=== PATIENT | female | born 1960 | race Caucasian/White ===

== ENCOUNTER 2021-06-11 12:37 | Outpatient (CLI) | payer BC, SELFPAY ==
--- NOTE | ~2021-06-11 | DEXA_ITS ---
Bone Density Report Name: Melisa Monge Age: 60 Sex: Female Ethnicity: White Date of : 1960 Indication: osteopenia; postmenopausal Referring Provider: Kunal Ruiz Study: Bone densitometry was performed. Exam Date: June 11, 2021 Accession number: [id number] Bone Density: Region BMD T-score Z-score Classification AP Spine(L1-L4) 0.977 -0.6 1.0 Normal Femoral Neck (Left) 0.704 -1.3 0.1 Osteopenia Total Hip (Left) 0.744 -1.6 -0.5 Osteopenia Femoral Neck (Right) 0.666 -1.6 -0.2 Osteopenia Total Hip (Right) 0.716 -1.9 -0.8 Osteopenia Femoral Neck Mean 0.685 -1.5 -0.1 Osteopenia Total Hip Mean 0.730 -1.7 -0.6 Osteopenia World Health Organization criteria for BMD impression classify patients as: Normal (T-score at or above -1.0), Osteopenia (T-score between -1.0 and -2.5), or Osteoporosis (T-score at or below -2.5). 10-year Fracture Risk(1): Major Osteoporotic Fracture 8.6% Hip Fracture 0.9% Reported Risk Factors: [place] (), Neck BMD=0.666, BMI=31.1 (1) FRAX(R) Version 3.08. Fracture probability calculated for an untreated patient. Fracture probability may be lower if the patient has received treatment. Previous Exams: Region Exam Age BMD T-score BMD Change BMD Change Date g/cm2 vs Baseline vs Previous AP Spine (L1-L4) 06/11/2021 60 0.977 -0.6 -0.001 (-0.1%) -0.008 (-0.8%) 01/21/2016 55 0.985 -0.6 0.008 (0.8%) 0.008 (0.8%) 11/22/2014 54 0.977 -0.6 Total Hip(Left) 06/11/2021 60 0.744 -1.6 -0.041 (-5.3%) 0.034 (4.8%)# 01/21/2016 55 0.710 -1.9 -0.076 (-9.6%) -0.076 (-9.6%) 11/22/2014 54 0.785 -1.3 Total Hip(Right) 06/11/2021 60 0.716 -1.9 -0.083 (-10.4% -0.083 (-10.4% 11/22/2014 54 0.799 -1.2 *Denotes significance at 95% confidence level, LSC for AP Spine = 0.022 g/cm2, LSC for Total Hip = 0.027 g/cm2 # Denotes dissimilar scan types or analysis methods Clinical Information Provided by Patient: Has used the following medications: Vitamin D Menopause Age: 43 No regular weight bearing exercise Drinks caffeinated beverages Onset of menses at age 11 Number of children 2 Impression: The patient has low bone mass, based on the Right Total Hip T-score. No significant bone loss was observed. Discussion: BONE DENSITY IS LOW AT ONE OR MORE SKELETAL SITES. This patient's lowest T-score is low at one or more skeletal sites. It meets the [facility]
--- NOTE | ~2021-06-11 | MM_ITS ---
EXAMINATION: MM screening [facility] BI w shwetha HISTORY: Screening TECHNIQUE: Craniocaudal and mediolateral oblique 3-D tomosynthesis images were obtained and synthetic 2-D images were generated. CAD analysis was submitted and interpreted. COMPARISON: Comparison to multiple prior studies sequentially, with oldest reviewed study dated 05/2012. BREAST PARENCHYMAL COMPOSITION: There are scattered areas of fibroglandular density. FINDINGS: There is no evidence of suspicious mass, calcification, or architectural distortion to sugg est malignancy in either breast. There has been no suspicious interval change. IMPRESSION: 1. No mammographic evidence of malignancy. 2. Recommend routine screening mammography in one year. BI-RADS Category 1: Negative Reviewed, dictated and finalized at location A.
== END 2021-06-11 12:38 | disposition home or self-care (01) ==
PROVIDERS: PCP Internal Medicine; Visit Provider Internal Medicine
DX: M85.80 Other specified disorders of bone density and structure, unspecified site (principal); Z00.00 Encounter for general adult medical examination without abnormal findings; Z78.0 Asymptomatic menopausal state; Z12.31 Encounter for screening mammogram for malignant neoplasm of breast
CPT/HCPCS: 77063; 77067; 77080

== ENCOUNTER 2021-08-11 10:18 | Outpatient (CLI) | payer BC, SELFPAY ==
[2021-08-11 13:28] LABS: Influenza A QL RT-PCR Negative (Negative); Influenza B QL RT-PCR Negative (Negative); SARS-CoV-2 RNA PCR Negative (Negative)
== END 2021-08-11 10:19 | disposition home or self-care (01) ==
LOC: CHSLAB 10:21
PROVIDERS: PCP Internal Medicine; Visit Provider Internal Medicine
DX: J02.9 Acute pharyngitis, unspecified (principal); Z20.822 Contact with and (suspected) exposure to COVID-19
CPT/HCPCS: 87502; C9803; U0003; U0005

== ENCOUNTER 2022-07-20 07:18 | Outpatient (CLI) | payer BC, SELFPAY ==
--- NOTE | ~2022-07-20 | MM_ITS ---
EXAMINATION: MM screening [facility] w shwetha HISTORY: Screening mammogram TECHNIQUE: Craniocaudal and mediolateral oblique 3-D tomosynthesis images were obtained and synthetic 2-D images were generated. CAD analysis was submitted and interpreted. COMPARISON: 05/11/2021, 09/2018, 05/09/2017 bilateral screening mammogram examinations BREAST PARENCHYMAL COMPOSITION: The breasts are almost entirely fatty. FINDINGS: There is no evidence of suspicious mass, calcification, or architectural distortion to sugg est malignancy in either breast. There has been no suspicious interval change. IMPRESSION: 1. No mammographic evidence of malignancy. 2. Recommend routine screening mammography in one year. BI-RADS Category 1: Negative Reviewed, dictated and finalized at location A. PILER
== END 2022-07-20 07:19 | disposition home or self-care (01) ==
LOC: CHSIMG 07:20
PROVIDERS: PCP Internal Medicine; Visit Provider Internal Medicine
DX: Z12.31 Encounter for screening mammogram for malignant neoplasm of breast (principal)
CPT/HCPCS: 77063; 77067

== ENCOUNTER 2022-07-23 10:40 | Outpatient (CLI) | payer BC, SELFPAY ==
--- NOTE | ~2022-07-23 | US_ITS ---
EXAMINATION: US venous doppler [facility] DATE: 07/23/2022 11:11 INDICATION: Left popliteal pain and swelling TECHNIQUE: Ryder scale images without and with compression and Doppler images of the left lower extrem ity veins were obtained. COMPARISON: None FINDINGS: The left common femoral vein, profunda femoral vein, femoral vein, popliteal vein, peroneal trunk, posterior tibial veins, and greater saphenous vein are patent. There is a 6.1 cm Thorne's cyst in the left popliteal fossa. IMPRESSION: 1. Patent left lower extremity veins. No evidence of deep venous thrombosis. 2. 6.1 cm Thorne's cyst. Reviewed, dictated and finalized at location B. CONDITIONING MANAGER
== END 2022-07-23 10:41 | disposition home or self-care (01) ==
LOC: CHSIMG 10:42
PROVIDERS: PCP Internal Medicine; Visit Provider Internal Medicine
DX: M79.605 Pain in left leg (principal)
CPT/HCPCS: 93971

== ENCOUNTER 2022-08-10 09:06 | Outpatient (CLI) | payer BC, SELFPAY ==
--- NOTE | ~2022-08-10 | XR_ITS ---
XR knee LT min 4V DATE: 08/10/2022 09:31 INDICATION: Medial left knee pain. History of arthritis. TECHNIQUE: [place], lateral, [place] weightbearing AP views COMPARISON: None FINDINGS: There is prominent loss of medial joint space height with minimal periarticular spurring. No fracture or dislocation or joint effusion, periosteal reaction or bone destruction, radiopaque int ra-articular loose body or chondrocalcinosis is noted. Osteopenia. IMPRESSION: Prominent medial compartment osteoarthritis Osteopenia Reviewed, dictated and finalized at location B. 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
== END 2022-08-10 09:07 | disposition home or self-care (01) ==
LOC: CHSIMG 09:08
PROVIDERS: PCP Internal Medicine; Visit Provider Internal Medicine
DX: M25.562 Pain in left knee (principal)
CPT/HCPCS: 73564

== ENCOUNTER 2022-08-19 08:50 | Outpatient (RCR) | payer BC, SELFPAY ==
--- NOTE | 2022-08-19 09:40 | PTOPEVAL1 ---
Assessment and note entered by Anabel Segovia, PT Evaluation Information Assessment Status Evaluation Diagnosis Knee Pain, OA Onset 08/10/22 Subjective Information Melisa Monge reports she started having left knee pain while on vacation in June 2022. She reports she has a history of a Thorne's Cyst and had a long drive. She also did a lot of walking while on vacation. She stands and walks a lot for work as well. She went to her doctor and was prescribed medication that did not help so she was referred to PT. She underwent x-ray that showed OA in the left knee. She has increased pain with getting up after prolonged sitting. She has 4 stairs into her home that she can navigate fairly well. Reported Pain Level Pain Score 6: Self Report Assessment PT Clinical Summary Melisa Monge presents with left knee pain and has been diagnosed with osteoarthritis. She has difficulty with sit to stand transfers after prolonged sitting as well as prolonged walking. She objectively demonstrates decreased and painful left knee ROM, decreased knee and hip strength, impaired gait, and decreased functional abilities. She will benefit from skilled PT to address these limitations. Plan of Care Interventions Electrical Stimulation,Hot Pack/Cold Pack, Intermittent Compression,Manual Therapy,Neuro Re- education,Patient/Caregiver Educati,Therapeutic Activities,Therapeutic Exercise PT Services Indicated Yes Treatment Frequency and 3 times a week for 12 visits Duration These treatments will address the objective and functional deficits as defined above. The patient will be advanced safely and appropriately in order for the patient to progress towards his/her prior level of function. Additional exercises will be introduced and as well as a comprehensive home exercise program upon discharge, if needed, ?to ensure carryover of functional gains achieved in the clinic. This treatment plan has been reviewed and agreement upon by the patient.
--- NOTE | 2022-09-07 10:04 | PTOPDC ---
Assessment and note entered by JT File, PT Evaluation Information Assessment Status Discharge Diagnosis Knee Pain, OA Onset 08/10/22 Subjective Information patient reports she feels good this date. she reports she has been cleared to stop therapy from her MD. she reports she would like to DC therapy today and continue with HEP independent at home. Reported Pain Level Pain Score 0: Self Report Assessment PT Clinical Summary mrs. denise presents to skilled PT services for her 5th skilled tehrapy visit. as of this date, she presents with pain free ambulation, pain free rom, and return to all prior level activities. she has met all goals, except for her goal for ROM. she would do well to continue with HEP independent at home. Plan of Care Treatment Frequency and DC to independent HEP Duration
== END 2022-09-07 16:07 | disposition home or self-care (01) ==
LOC: CHSPT 08:50
PROVIDERS: PCP Internal Medicine; Visit Provider Internal Medicine
DX: M25.562 Pain in left knee (principal); M17.12 Unilateral primary osteoarthritis, left knee
CPT/HCPCS: 97014; 97110; 97161; 97530; G0283

== ENCOUNTER 2022-12-23 12:42 | Outpatient (CLI) | payer BC, SELFPAY ==
--- NOTE | ~2022-12-23 | US_ITS ---
EXAMINATION: US pelvic complete w TV DATE: 12/23/2022 13:33 INDICATION: Postmenopausal bleeding Comparison:No prior studies for comparison. TECHNIQUE: Multiple transabdominal and endovaginal sonographic images of the pelvis performed. FINDINGS: The uterus measures 5.8 x 3.4 x 4.2 cm. The endometrial complex is not well delineated due to large heterogeneous mass in the endometrium measuring 3.4 x 3.4 x 2.8 cm. The ovaries are not visualized. There is no free fluid in the pelvis. There are no abnormal masses seen on either side. IMPRESSION: 1. Complex endometrial mass measuring 3.4 x 2.8 x 3.4 cm, suspicious for endometrial carcinoma. Recom mend follow-up clinical evaluation. Reviewed, dictated and finalized at location L. IMPRESSION: 1. Complex endometrial mass measuring 3.4 x 2.8 x 3.4 cm, suspicious for endome trial carcinoma. Recommend follow-up clinical evaluation.
== END 2022-12-23 12:43 | disposition home or self-care (01) ==
PROVIDERS: PCP Internal Medicine; Visit Provider Registered Nurse
DX: N95.0 Postmenopausal bleeding (principal); N85.00 Endometrial hyperplasia, unspecified
CPT/HCPCS: 76830; 76856

== ENCOUNTER 2023-05-18 01:27 | Emergency (ER) | payer BC, SELFPAY ==
[2023-05-18] MEDS: methylPREDNISolone SOD SUCC 125 MG VIAL IM (01:30)
[2023-05-18 01:32] VITALS: BP 166/80; PULSE 77; RESP 20; TEMP 37; O2SAT 97
--- NOTE | 2023-05-18 01:46 | ED.SKABFB ---
HPI - Skin/Abscess/Foreign Bdy General Chief complaint: Skin/Abscess/Foreign Body Stated complaint: hives Source: patient and family Mode of arrival: ambulatory Limitations: no limitations History of Present Illness HPI narrative: patient is a 62-year-old female with known cancer and chemotherapy here with generalized rash. The rash is diffuse and started after she started a new vitamin suggested by the oncologist. MD complaint: rash Onset (ago): day(s) Location: generalized Severity: moderate Severity scale (1-10): 5 ( Pruritus) Quality: pruritic Pain Consistency: constant Relieving factors: none Exacerbating factors: none Context: new medication Associated symptoms: itching Treatments prior to arrival: Benadryl Related Data Home Medications Medication Instructions Recorded Confirmed aspirin 81 mg tablet,delayed 81 mg PO DAILY 04/08/21 05/18/23 release calcium carbonate 600 mg calcium 600 mg PO DAILY 04/08/21 05/18/23 (1,500 mg) tablet (Calcium) cholecalciferol (vitamin D3) 25 25 mcg PO DAILY 04/08/21 05/18/23 mcg (1,000 unit) capsule escitalopram oxalate 5 mg tablet 5 mg PO DAILY 04/08/21 05/18/23 multivitamin (Daily Multi-Vitamin 1 tablet PO DAILY 04/08/21 05/18/23 tablet) vitamin B complex (B 1 tablet PO DAILY 04/08/21 05/18/23 Complex-Vitamin B12 tablet) ondansetron HCl 8 mg tablet 8 mg PO Q4H PRN Nausea And Vomiting 05/18/23 05/18/23 prochlorperazine maleate 10 mg 10 mg PO Q6H PRN Nausea And 05/18/23 05/18/23 tablet Vomiting Allergies Allergy/AdvReac Type Severity Reaction Status Date / Time acetaminophen [From Vicodin] Allergy unknown Verified 12/17/22 09:53 azithromycin Allergy unknown Verified 12/17/22 09:53 hydrocodone [From Vicodin] Allergy unknown Verified 12/17/22 09:53 tramadol Allergy unknown Verified 12/17/22 09:53 Review of Systems Review of Systems: All systems reviewed & are unremarkable except as noted in HPI and below Constitutional: Constitutional: Reports no additional constitutional complaints Eyes: Eyes: Reports no additional eye complaints ENT: Reports system reviewed and no additional complaints, except as documented Cardiovascular: Cardiovascular: Reports no additional cardiovascular complaints Respiratory: Respiratory: Reports no additional respiratory complaints Gastrointestinal: Gastrointestinal: Reports no additional gastrointestinal complaints Genitourinary: Genitourinary: Reports no additional female genitourinary complaints Musculoskeletal: Musculoskeletal: Reports no additional musculoskeletal complaints Integumentary/Breasts: Skin/Breast: Reports system reviewed and no additional complaints, except as docu Neurologic: Reports system reviewed and no additional complaints, except as documented Psychiatric: Psychiatric: Reports no additional psychiatric complaints Endocrine: Endocrine: Reports no additional endocrine complaints Hematologic/Lymphatic: Hematologic/Lymphatic: Reports no additional hematologic/lymphatic complaints Allergic/Immunologic: Allergic/Immunologic: Reports no additional allergic/immunologic complaints PMFSH Past Medical History Medical History DVT (deep venous thrombosis) Vaginal delivery x 2 Surgical History Surgical History History of appendectomy History of bilateral tubal ligation Family History Family History Sibling Cerebrovascular accident Daughter Diabetes mellitus Thyroid disorder Social History Social History Smoking status: Never smoker Alcohol intake: never Substance use: never Lack of Transportation: No Lack of Food: Never True Current Housing: I Have Housing Concerned About Future Housing: No Difficulty Paying Gas/Electric Bills: No Difficulty Paying for Med
[2023-05-18] MEDS: hydrOXYzine HCL 25 MG TABLET PO (01:48)
[2023-05-18 02:05] VITALS: BP 142/85; PULSE 72; RESP 20; TEMP 37; O2SAT 96
== END 2023-05-18 02:10 | disposition home or self-care (01) ==
PROVIDERS: Emergency Provider Emergency Medicine; PCP Internal Medicine
DX: T78.40XA Allergy, unspecified, initial encounter (principal); C80.1 Malignant (primary) neoplasm, unspecified; Z79.82 Long term (current) use of aspirin; Z79.899 Other long term (current) drug therapy; Z86.718 Personal history of other venous thrombosis and embolism
CPT/HCPCS: 96372; 99283; A9270; J2930

== ENCOUNTER 2023-06-10 14:51 | Outpatient (CLI) | payer BC, SELFPAY ==
--- NOTE | ~2023-06-10 | CT_ITS ---
EXAMINATION: CTA chest PE protocol DATE: 06/10/2023 15:36 CDT INDICATION: Uterine cancer. Cough. Elevated d-dimer. TECHNIQUE: Computed tomographic angiography (CTA) of the chest was performed with 100 mL Omnipaque-35 0 intravenous contrast. The dose-length product was 584.78 mGy-cm. Maximum intensity projection 3D-re constructions of the aorta and other arteries were constructed by the technologist on a separate work station. Automated exposure control and iterative reconstruction technique were employed. COMPARISON: No prior studies for comparison. . FINDINGS: Study is technically adequate without evidence for pulmonary embolism. There is thoracic ly mphadenopathy, likely reactive. There is an enlarged left thyroid gland with substernal goiter. No si gnificant pleural or pericardial effusion. Upper abdomen is unremarkable. No endobronchial lesions. N o focal pneumonia. No pneumothorax. No endobronchial lesions. IMPRESSION: 1. No acute cardiopulmonary disease. No evidence for pulmonary embolism. 2: Enlarged substernal thyroid goiter. Consider correlation with ultrasound. 3: Thoracic lymphadenopathy, likely reactive. Reviewed, dictated and finalized at location B.
== END 2023-06-10 14:52 | disposition home or self-care (01) ==
LOC: CHSIMG 14:56
PROVIDERS: PCP Internal Medicine; Visit Provider Internal Medicine
DX: R06.00 Dyspnea, unspecified (principal); R79.1 Abnormal coagulation profile; C55 Malignant neoplasm of uterus, part unspecified; E04.9 Nontoxic goiter, unspecified; R59.0 Localized enlarged lymph nodes
CPT/HCPCS: 71275; Q9967

== ENCOUNTER 2023-09-23 15:54 | Outpatient (CLI) | payer BC, SELFPAY ==
[2023-09-23 21:15] LABS: Appearance Urine Clear (Clear); Bilirubin Urine Negative (Negative); Blood Urine Trace-Intact (Negative); Color Urine Light Yellow (Yellow); Glucose Urine UA Negative (Negative); Ketones Urine Negative (Negative); Leukocyte Esterase Ur Negative (Negative); Nitrate Urine Negative (Negative); Protein Urine Negative (Negative); Specific Grav Ur >= 1.030 (1.010-1.020); Urobilinogen Urine 0.2 mg/dL (0.2-1.0); pH Urine 5.5 (5.0-8.0)
[2023-09-23 21:31] LABS: Add Urine Microscopic? YES; Bacteria Urine 1+ /hpf; Squamous Epithelial Cell Urine Occasional /hpf (Few); WBC Urine 0-3 /hpf (0-3)
== END 2023-09-23 15:55 | disposition home or self-care (01) ==
LOC: CHSLAB 15:57
PROVIDERS: PCP Internal Medicine
DX: C53.9 Malignant neoplasm of cervix uteri, unspecified (principal)
CPT/HCPCS: 81001; 87086; 87088

== ENCOUNTER 2023-11-28 08:12 | Outpatient (CLI) | payer BC, SELFPAY ==
--- NOTE | ~2023-11-28 | XR_ITS ---
EXAMINATION: XR barium swallow DATE: 11/28/2023 09:15 INDICATION: Dysphagia and belching TECHNIQUE: The patient drank thick barium, gas-producing crystals, and thin barium. Fluoroscopic spot radiographs of the hypopharynx and esophagus were obtained. Fluoroscopy exposure time was 2.3 minut es. COMPARISON: None. FINDINGS: The pharynx is symmetric and without evidence of mass lesion or mucosal irregularity. The e sophagus is normal without mass or stricture. Esophageal motility is normal. There is no hiatal herni a. There was no gastroesophageal reflux with provocative maneuvers. IMPRESSION: 1. Normal esophagram. Reviewed, dictated and finalized at location A. IMPRESSION: 1. Normal esophagram.
== END 2023-11-28 08:13 | disposition home or self-care (01) ==
LOC: ANHIMG 08:19
PROVIDERS: PCP Internal Medicine; Visit Provider Internal Medicine
DX: R13.10 Dysphagia, unspecified (principal)
CPT/HCPCS: 74220

== ENCOUNTER 2023-11-28 12:44 | Outpatient (CLI) | payer BC, SELFPAY ==
--- NOTE | ~2023-11-28 | US_ITS ---
Thyroid ultrasound. Clinical History: Multinodular goiter COMPARISON: 09/30/2017 Findings: Real-time sonography of the thyroid gland was performed. The right lobe measures 2.8 x 1.5 x 1.2 cm. The left lobe measures 6.5 x 5.3 x 3.8 cm. The isthmus is 4 mm in AP diameter. There is a 0.5 cm hypoechoic solid nodule at the right midpole anteriorly. There is a 5.2 x 3.4 cm le ft thyroid lobe nodule with a large central cystic component. Impression: Large left thyroid lobe nodule is similar in morphology to prior exam, though increased in size. Rela tively modest increase in size given the timeframe is consistent with a benign nodule.. Reviewed, dictated and finalized at location . Impression: Large left thyroid lobe nodule is similar in morphology to prior exam, though i ncreased in size. Relatively modest increase in size given the timeframe is con sistent with a benign nodule..
== END 2023-11-28 12:45 | disposition home or self-care (01) ==
LOC: CHSIMG 12:44
PROVIDERS: PCP Internal Medicine; Visit Provider Internal Medicine
DX: E04.2 Nontoxic multinodular goiter (principal); R13.10 Dysphagia, unspecified
CPT/HCPCS: 76536

== ENCOUNTER 2024-11-14 13:35 | Outpatient (CLI) | payer MEDICARE, OTHER, SELFPAY ==
--- NOTE | ~2024-11-14 | DEXA_ITS ---
Bone Density Report Name: YASMEEN THOMAS Age: 64 Sex: Female Ethnicity: White Date of : 1960 Indication: osteopenia; height loss; cancer; Referring Provider: Kunal Ruiz Study: Bone densitometry was performed. Exam Date: November 14, 2024 Accession number: [id number] Bone Density: Region BMD T-score Z-score Classification AP Spine(L1-L4) 1.038 -0.1 1.8 Normal Femoral Neck (Left) 0.678 -1.5 0.0 Osteopenia Total Hip (Left) 0.832 -0.9 0.4 Normal Femoral Neck (Right) 0.695 -1.4 0.2 Osteopenia Total Hip (Right) 0.776 -1.4 -0.1 Osteopenia Femoral Neck Mean 0.687 -1.5 0.1 Osteopenia Total Hip Mean 0.804 -1.1 0.2 Osteopenia World Health Organization criteria for BMD impression classify patients as: Normal (T-score at or above -1.0), Osteopenia (T-score between -1.0 and -2.5), or Osteoporosis (T-score at or below -2.5). 10-year Fracture Risk(1): Major Osteoporotic Fracture 8.9% Hip Fracture 1.0% Reported Risk Factors: [place] (), Neck BMD=0.678, BMI=30.6 (1) FRAX(R) Version 3.08. Fracture probability calculated for an untreated patient. Fracture probability may be lower if the patient has received treatment. Previous Exams: Region Exam Age BMD T-score BMD Change BMD Change Date g/cm2 vs Baseline vs Previous AP Spine (L1-L4) 11/14/2024 64 1.038 -0.1 0.061 (6.2%)# 0.061 (6.3%)* 06/11/2021 60 0.977 -0.6 -0.001 (-0.1%) -0.008 (-0.8%) 01/21/2016 55 0.985 -0.6 0.008 (0.8%) 0.008 (0.8%) 11/22/2014 54 0.977 -0.6 Total Hip(Left) 11/14/2024 64 0.832 -0.9 0.047 (6.0%)# 0.088 (11.8%)* 06/11/2021 60 0.744 -1.6 -0.041 (-5.3%) 0.034 (4.8%)# 01/21/2016 55 0.710 -1.9 -0.076 (-9.6%) -0.076 (-9.6%) 11/22/2014 54 0.785 -1.3 Total Hip(Right) 11/14/2024 64 0.776 -1.4 -0.022 (-2.8%) 0.061 (8.5%)* 06/11/2021 60 0.716 -1.9 -0.083 (-10.4% -0.083 (-10.4% 11/22/2014 54 0.799 -1.2 *Denotes significance at 95% confidence level, LSC for AP Spine = 0.022 g/cm2, LSC for Total Hip = 0.027 g/cm2 # Denotes dissimilar scan types or analysis methods Clinical Information Provided by Patient: Has used the following medications: Vitamin D, Calcium, multi Has the following medical conditions: Cancer Patient maximum height was 64 Menopause Age: 43 No regular weight bearing exercise Does not regularly consume dairy products Drinks caffeinated beverages Onset of menses at age 11 Number of children 2 Impression: The patient has low bone mass, based on the Left Femoral Neck T-score. No significant bone loss was observed. Discussion: BONE DENSITY IS LOW AT ONE OR MORE SKELETAL SITES. This patient's lowest T-score is low at one or more skeletal sites. It meets the World Health Organization's (WHO) criteria for ?low bone mass? (T-score between -1.0 and -2.5). The patient's 10-year risk of fracture as calculated by FRAX is less than the threshold where pharmacological therapy is recommended by the National Osteoporosis Foundation (NOF). However, all treatment decisions require clinical judgment and consideration of individual patient factors, including patient preferences, comorbidities, previous drug use, risk factors not captured in the FRAX model (e.g., frailty, falls, vitamin D deficiency, increased bone turnover, interval significant decline in bone density) and possible under or overestimation of fracture risk by FRAX. The patient should follow a healthful lifestyle (good nutrition with adequate calcium and vitamin D, and appropriate weight-bearing exercise). Follow-Up: Consider repeating this study in 2 to 3 years to reassess this patient's status, or sooner if there is some new clinical indication. Reported by: ED on 11/14/2024 2:33:00 PM. Reviewed, dictated and finalized at location A.
--- NOTE | ~2024-11-14 | MM_ITS ---
EXAMINATION: MM screening ying BI w shwetha HISTORY: Screening mammogram TECHNIQUE: Craniocaudal and mediolateral oblique 3-D tomosynthesis images were obtained and synthetic 2-D images were generated. CAD analysis was submitted and interpreted. COMPARISON: 07/20/2022, 06/11/2021, 09/15/2018 BREAST PARENCHYMAL COMPOSITION:Not Dense. The breasts are almost entirely fatty FINDINGS: No suspicious mass, calcification, or architectural distortion are identified in either yecenia ast to suggest malignancy. There has been no suspicious interval change. IMPRESSION: No mammographic evidence of malignancy. Recommend routine screening mammography in one year. BI-RADS Category 1: Negative Reviewed, dictated and finalized at location . WEIGHER
--- OUTSIDE RECORDS SUMMARY | 2024-11-14 15:02 | XMS_ITS | Encounter Summary ---
Author Organization [facility] Healthcare Address [address] [place] [address] Care Team Providers Care Circuit Judge Name Role Phone Kunal Ruiz MD Primary Care Provider [phone] Rivera Rizzo MD Unavailable [phone] Maria Esther Velazquez MD Unavailable [phone] Encounter Details Date Type Department Care Team (Late st Contact Info) Description 04/12/2023 Telephone [facility] [address] [place] [address] Oly Barrera RN Social History Tobacco Use Types Packs/Day Years Used Date Smoking Tobacco: Never Passive Smoke Exposure: Past Smokeless Tobacco: Never AUDIT-C Answer Date Recorded Q1: How often do you have a drink containing alcohol? Never 01/28/2023 Q2: How many drinks containi ng alcohol do you have on a typical day when you are drinking? Patient does not drink Q3: How often do you have si x or more drinks on one occasion? 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 Gender Identity Not on file Sexual Orientation Not on file documented as of this encounter Plan of Treatment Not on file documented as of this encounter Visit Diagnoses Not on filedocumented in this encounter Care Teams Circuit Judge Relationship Specialty Start Date End Date Kunal Ruiz MD PCP - General Internal Medicine 01/13/23 Rivera Rizzo MD [address] [facility] [address] [place] [address] Referring Physician Obstetrics and Gynecology 05/04/23 Maria Esther Velazquez MD [address] [place] [address] Radiation Oncologist Radiation Oncology 09/27/23 documented as of this encounter
--- OUTSIDE RECORDS SUMMARY | 2024-11-14 15:02 | XMS_ITS ---
Author Organization [facility] Address [address] [place] [address] Care Team Providers Care Ship Pilot Dispatcher Name Role Phone Kunal Ruiz MD Primary Care Provider [phone] Rivera Rizzo MD Unavailable [phone] Maria Esther Velazquez MD Unavailable [phone] Active Problems Problem Noted Date Diagnosed Date Endometrial cancer 01/20/2023 Cancer Staging:Pathologic stage from 02/14/2023:FIGO Stage IB(pT1b, pN0, cM0) - Signed by Daiana Cox MD on 03/16/2023 Current Treatment and Therapy Plans IV Maintenance Therapy Plan* Plan Start Date:05/05/2023 Plan Provider:Daiana Cox MD Linked Problems Endometrial cancer (HCC) Treatment Medications No medications scheduled. Venous Sampling from IVAD* Plan Start Date:06/23/2023 Plan Provider:Daiana Cox MD Linked Problems Endometrial cancer (HCC) Treatment Medications No medications scheduled. Past Treatment and Therapy Plans Oncology Chemotherapy Treatment Plan Name Start Date Discontinue Date Treatment Medications Discontinue Reason Plan Provider Cycles PACLItaxel / CARBOplatin (AUC 4) 21 Day Cycles - CANNERY WORKER (Carbo Locked) 04/12/2023 11/23/2023 CARBOplatin (by AUC:GOG) (PARAPLATIN)CA RBOplatin (PARAPLATIN) IVPB in 250 mL (by AUC: GOG)PACLitaxel (TAXOL)PACLIta xel (TAXOL) IVPB in 500 mL Therapy Complete Daiana Cox MD 6 of 6 cycles started Radiation Treatments * Course C1_Vaginal apex 09/09/2023 - 09/16/2023 Treatment Period Energy Fraction Dose Fractions Total Dose Plans Planned WHOLE PELVIS 09/09/2023 - 09/16/2023 500 5 / 2,500 Reference Points Delivered PTV_2500 09/09/2023 - 09/16/2023 2,500 Lifetime Dose Tracking * Chemical Lifetime Dose Automatic Entry Manual Entr y Fluoro Time 0.8 minutes 0.8 minutes 0 minutes Air kerma at the reference point (Ka,r) 6 mGy 6 mGy 0 mGy DLP 2,572 mGycm 2,572 mGycm 0 mGycm Resolved Problems Problem Noted Date Diagnosed Date Resolved Date At high risk for bleeding 04/06/2023 Pre-procedure lab exam 04/06/202308/10
--- OUTSIDE RECORDS SUMMARY | 2024-11-14 15:02 | XMS_ITS | Clinical Summary ---
Author Organization [facility] Address [address] [place] [id number] Care Team Providers Care Wine Steward Name Role Phone Kunal Ruiz MD Primary Care Provider [phone] Rivera Rizzo MD Unavailable [phone] Maria Esther Velazquez MD Unavailable [phone] Allergies Active Allergy Reactions Criticality Noted Date Comments Alpha Lipoic Acid Hives Medium 06/21/2024 Medications escitalopram (LEXAPRO) 10 mg tablet Take 1 tablet (10 mg total) by mouth coding quality analyst before breakfast 3 Active multivit/folic acid/vit K1 (ONE-A-DAY WOMEN'S 50 PLUS ORAL) Take 1 tablet by mouth coding quality analyst before breakfast Active calcium carbonate (CALCIUM 600 ORAL) Take 1 tablet by mouth coding quality analyst before breakfast Active cyanocobalamin (Vitamin B-12) 500 mcg tabletIndicatio ns:Prevention of Vitamin B12 Deficiency Take 1 tablet (500 mcg total) by mouth coding quality analyst before breakfast Active cholecalciferol (VITAMIN D-3) 1,000 unit Take 1 tablet/capsule (1,000 Units total) by mouth coding quality analyst before breakfast Active montelukast (SINGULAIR) 10 mg tablet Take 1 tablet (10 mg total) by mouth nightly 5 Active Active Problems Problem Noted Date Diagnosed Date Endometrial cancer 01/20/2023 Cancer Staging:Pathologic stage from 02/14/2023:FIGO Stage IB(pT1b, pN0, cM0) - Signed by Daiana Cox MD on 03/16/2023 Resolved Problems Problem Noted Date Diagnosed Date Resolved Date At high risk for bleeding 04/06/2023 Pre-procedure lab exam 04/06/202308/10 Encounters Date Type Department Care Team Description 10/08/2024 3:00 PM EXIT BOOTH AGENT Office Visit [facility] Obstetrics and Gynecology [address] [place] [address] Advanced Medicine 13th [place] [address] [place] [address] Vanda Escobar NP Encounter for routine cancer follow-up (Primary Dx); Endometrial cancer (HCC) 09/27/2024 11:00 AM EXIT BOOTH AGENT Lab [facility] [address] [place] [phone] Endometrial cancer (HCC) 09/27/2024 9:20 AM EXIT BOOTH AGENT Office Visit [facility] Radiation Oncology [address] [place] [address] Advanced [facility] [place] [address] Shreya Carlton PA Endometrial cancer (HCC) (Primary Dx) 09/27/2024 8:21 AM EXIT BOOTH AGENT - 09/27/2024 11:59 PM EXIT BOOTH AGENT Hospital Encounter [facility] [place] [facility] ([facility]) [address] [place] [id number] Endometrial cancer (HCC) Discharge Disposition: Discharge to home or self care from Last 3 Months Immunizations Immunization Administration Dates Next Due Tdap 11/12/2014 ZOSTER Recombinant 02/17/2022,11/12/2021 Surgical History Surgery Date Site/Laterality Comments APPENDECTOMY TUBAL LIGATION 12/09/1986 PORT PLACEMENT CHEST >5 YEARS 04/14/2023 N/A PORT REMOVAL 05/26/2023 N/A HYSTERECTOMY PORT PLACEMENT CHEST >5 YEARS 06/02/2023 N/A PORT REMOVAL 12/22/2023 N/A Medical History Medical History Date Comments Delayed emergence from general anesthesia Depression Obesity Cancer (HCC) Family History Medical History Relation Name Comments Diabetes Daughter Hypertension Daughter Other Daughter Thyroid problem s Emphysema Father Cancer Mother a type of bone cancer, but not all throughout the body Stroke Sister Diabetes Son Anesthesia problems Neg Hx Relation Name Status Comments Child Daughter Alive Father Mother Sister Son Alive Social History Tobacco Use Types Packs/Day Years Used Date Smoking Tobacco: Never Passive Smoke Exposure: Past Tobacco Cessation:Counseling Given: No AUDIT-C Answer Date Recorded Q1: How often do you have a drink containing alcohol? Never 12/22/2023 Q2: How many drinks containi ng alcohol do you have on a typical day when you are drinking? Patient does not drink Q3: How often do you have si x or more drinks on one occasion? Never 12/22/2023 Personal Safety Answer Date Recorded Have you ever been in or are you currently in a harmful physical or emotional relationship or is someone making you feel afraid or unsafe? Denies 12/22/2023 Comments No Sex and Gender Information Value Date Recorded Sex Assigned at Not on file Legal Sex Female 3:43 PM EXIT BOOTH AGENT Gender Identity Not on file Sexual Orientation Not on file Obstetrics History Para Term AB IAB SAB Ectopic Multiple Livin g Live Births 2 2 2 2 2 Date Outcome GA Total Labor Labor/2nd/3rd Weight Sex Type Anes PTL Isabela A1 A5 Name Clin Term Term Comments x 2 Last Filed Vital Signs Vital Sign Reading Time Taken Comments Blood Pressure 198/91 10/08/2024 3:06 PM EXIT BOOTH AGENT Pulse 60 10/08/2024 3:06 PM EXIT BOOTH AGENT Temperature 36.7 C (98.1 F) 10/08/2024 3:06 PM EXIT BOOTH AGENT Respiratory Rate 16 10/08/2024 3:06 PM EXIT BOOTH AGENT Oxygen Saturation 97% 10/08/2024 3:06 PM EXIT BOOTH AGENT Inhaled Oxygen Concentration - - Weight 85.3 kg (188 lb) 10/08/2024 3:06 PM EXIT BOOTH AGENT Height 157.5 cm (5' 2.01 ) 10/08/2024 3:06 PM CS T Body Mass Index 34.38 10/08/2024 3:06 PM EXIT BOOTH AGENT Plan of Treatment Health Maintenance Due Date Last Done Comments Breast Cancer Screening-Mammogram 1960 Colon Cancer Screening-Colonoscopy 1960 Depression Screening 1958 Hepatitis C Screening 1958 Osteoporosis Screening-Bone Density Scan 1958 Hepatitis B Screening 1976 Pneumococcal vaccine 65+ (1 of 1 - PCV) 2008 Well Visit 65+ 2023 Covid-19 Vaccine (3 season) 05/13/202405/2021, 11/19/2020 Influenza Vaccine (#1) 2024 Fall Risk Assessment 08/18/2024 08/18/2023, 06/02/20 23 DTaP/Tdap/Td Vaccine (2 - Td or Tdap) 11/12/202411/2014 Zoster Vaccine Completed 02/17/2022, 11/12/2021 Medical Devices Implanted Type Area [employer]enger [employer] Device Identifier Shelf Expiration Date Model / Serial / Lot [employer] Xcela Power Port 8fr [id number] - [id number] Implanted:Qty: 1 on 04/14/[address] [facility] [employer] 09/19/2027 [id number] / / [id number] Procedures Procedure Name Priority Date/Time Associated Diagnosis Comments DIFFERENTIAL AUTO Routine 09/27/2024 10: 17 AM EXIT BOOTH AGENT Endometrial cancer (HCC) CBC WITH AUTO DIFFERENTIAL Routine 09/27/2024 10:17 AM EXIT BOOTH AGENT Endometrial cancer (HCC) CT CHEST ABDOMEN PELVIS W CONTRAST Schedule Routine, Read Routine (OP Routine) 09/27/2024 8:53 AM EXIT BOOTH AGENT Endometrial cancer (HCC) POCT CREATININE - DEVICE Routine 09/27/2024 8:39 AM EXIT BOOTH AGENT from Last 3 Months Results * Differential, auto (09/27/2024 10:17 AM EXIT BOOTH AGENT) Neutrophil abs 3.6 1.5 - 6.5 K/cumm Imm gran abs 0.0 0.0 - 0.1 K/cumm [facility] Lymphocyte abs 1.4 0.8 - 3.3 K/cumm [facility] Monocyte abs 0.5 0.2 - 0.8 K/cumm [facility] Eosinophil abs 0.1 0.0 - 0.5 K/cumm [facility] Basophil abs 0.1 0.0 - 0.1 K/cumm [facility] Neutrophil pct 62.9 % [facility] Comment: Interpretive Data Percent cell count reference ranges are not reported, since discordance with absolute values may lead to misinterpretation of CBC data. Current Interpretive Data was last revised on 2017. Imm gran pct 0.2 % [facility] Comment: Interpretive Data Percent cell count reference ranges are not reported, since discordance with absolute values may lead to misinterpretation of CBC data. Current Interpretive Data was last revised on 2017. Lymphocyte pct 25.5 % [facility] Comment: Interpretive Data Percent cell count reference ranges are not reported, since discordance with absolute values may lead to misinterpretation of CBC data. Current Interpretive Data was last revised on 2017. Monocyte pct 8.5 % [facility] Comment: Interpretive Data Percent cell count reference ranges are not reported, since discordance with absolute values may lead to misinterpretation of CBC data. Current Interpretive Data was last revised on 2017. Eosinophil pct 1.8 % [facility] Comment: Interpretive Data Percent cell count reference ranges are not reported, since discordance with absolute values may lead to misinterpretation of CBC data. Current Interpretive Data was last revised on 2017. Basophil pct 1.1 % [facility] Comment: Interpretive Data Percent cell count reference ranges are not reported, since discordance with absolute values may lead to misinterpretation of CBC data. Current Interpretive Data was last revised on 2017. Blood 09/27/2024 10:1 7 AM EXIT BOOTH AGENT 09/27/2024 11:04 AM EXIT BOOTH AGENT Shreya DAILY LAB BLOOD ORDERABLES Final Result [facility] [place] [address] * (ABNORMAL) CBC with auto differential (09/27/2024 10:17 AM EXIT BOOTH AGENT) WBC 5.7 3.8 - 9.9 K/cumm Hgb 13.1 11.9 - 15.5 g/dL [facility] Hct 40.4 35.6 - 45.5 % [facility] Plt 364 150 - 400 K/cumm [facility] MPV 10.4 9.1 - 12.3 fL [facility] RBC 4.06 3.90 - 5.20 M/cumm [facility] MCV 99.5(H) 81.3 - 96.4 fL [facility] MCH 32.3 27.1 - 33.3 pg [facility] MCHC 32.4 32.3 - 35.7 g/dL [facility] RDW CV 13.0 11.1 - 14.9 % [facility] RDW SD 47.8 35.7 - 48.1 fL [facility] NRBC abs 0.00 0.00 - 0.01 K/cumm [facility] Blood 09/27/2024 10:1 7 AM EXIT BOOTH AGENT 09/27/2024 11:04 AM EXIT BOOTH AGENT us Shreya DAILY LAB BLOOD ORDERABLES Final Result Performing Organization Address City/State/[facility] Co de Phone Number [facility] Department [place] [address] * CT Chest Abdomen Pelvis W Contrast (09/27/2024 8:53 AM EXIT BOOTH AGENT) Anatomical Region Laterality Modality Body N/A Computed Tomogra phy 09/27/2024 9:13 AM EXIT BOOTH AGENT Impressions 09/27/2024 9:15 AM EXIT BOOTH AGENT 1. Postsurgical changes from total hysterectomy without evidence of metastatic disease in the chest, abdomen, or pelvis. Dictated by: Artem Marinelli M.D. The radiology attending physician has personally reviewed this study, and had reviewed and/or edited this written report and agrees with it. Electronically signed by: Matthew Piper M.D. 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 TECHNIQUE: Transaxial computed tomographic images of the chest, abdomen and pelvis were obtained with intravenous contrast according to the standard protocol after the uneventful administration of 75 mL Opti-Ray 350 intravenous contrast. COMPARISON: CT chest abdomen and pelvis on 03/22/2024 FINDINGS: Chest: No focal pulmonary consolidation, pleural effusion, or pneumothorax. Mild cardiomegaly but unchanged when compared to prior. No pericardial effusion. No significant supraclavicular, axillary, or mediastinal lymphadenopathy. Small hiatal hernia. Heterogeneous thyroid compatible with thyroid nodule seen on prior thyroid ultrasound dated 06/27/2024. Thoracic aorta is normal in caliber. Abdomen/Pelvis: Liver is normal. No intrahepatic or extrahepatic biliary dilatation. Gallbladder is normal. Infarcted spleen but unchanged. Adrenal glands are normal. Pancreas is mildly atrophied. Tiny simple renal cyst in the inferior pole of the right kidney. No evidence of hydronephrosis. Bladder is normal. Postsurgical changes from total hysterectomy. Normal course and caliber of the small bowel and colon. No intraperitoneal free air or free fluid. No significant abdominal or pelvic lymphadenopathy. Abdominal aorta is normal in caliber. No suspicious osseous lesions. 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 TECHNIQUE: Transaxial computed tomographic images of the chest, abdomen and pelvis were obtained with intravenous contrast according to the standard protocol after the uneventful administration of 75 mL Opti-Ray 350 intravenous contrast. COMPARISON: CT chest abdomen and pelvis on 03/22/2024 FINDINGS: Chest: No focal pulmonary consolidation, pleural effusion, or pneumothorax. Mild cardiomegaly but unchanged when compared to prior. No pericardial effusion. No significant supraclavicular, axillary, or mediastinal lymphadenopathy. Small hiatal hernia. Heterogeneous thyroid compatible with thyroid nodule seen on prior thyroid ultrasound dated 06/27/2024. Thoracic aorta is normal in caliber. Abdomen/Pelvis: Liver is normal. No intrahepatic or extrahepatic biliary dilatation. Gallbladder is normal. Infarcted spleen but unchanged. Adrenal glands are normal. Pancreas is mildly atrophied. Tiny simple renal cyst in the inferior pole of the right kidney. No evidence of hydronephrosis. Bladder is normal. Postsurgical changes from total hysterectomy. Normal course and caliber of the small bowel and colon. No intraperitoneal free air or free fluid. No significant abdominal or pelvic lymphadenopathy. Abdominal aorta is normal in caliber. No suspicious osseous lesions. IMPRESSION: 1. Postsurgical changes from total hysterectomy without evidence of metastatic disease in the chest, abdomen, or pelvis. Dictated by: Artem Marinelli M.D. The radiology attending physician has personally reviewed this study, and had reviewed and/or edited this written report and agrees with it. Electronically signed by: Matthew Piper M.D. us Shreya DAILY IMG CT PROCEDURES Final Res ult * POCT creatinine (09/27/2024 8:39 AM EXIT BOOTH AGENT) Creatinine POC 0.9 0.6 - 1.1 mg/dL Blood 09/27/2024 8:39 AM EXIT BOOTH AGENT 09/27/2024 8:39 AM EXIT BOOTH AGENT Shreya DAILY LAB POCT ORDERABLES - DEVIC E Final Result Performing Organization Address City/State/ZIP Co mi Phone Number [facility] [place] [address] from Last 3 Months Insurance MEDICARE [facility] MEDICARE [facility] [place] [id number] Advance Directives For more information, please contact: [phone] * Full Code (Latest Code Status on File) Date Activated Date Inactivated Comments 06/02/2023 7:12 AM 06/03/2023 4:50 AM * Full Code Date Activated Date Inactivated Comments 04/14/2023 7:37 AM 04/15/2023 4:55 AM Care Teams Wine Steward Relationship Specialty Start Date End Date Kunal Ruiz MD PCP - General Internal Medicine 01/13/23 Rivera Rizzo MD [address] [address] Referring Physician Obstetrics and Gynecology 05/04/23 Maria Esther Velazquez MD [address] [facility] [place] [address] Radiation Oncologist Radiation Oncology 09/27/23
--- OUTSIDE RECORDS SUMMARY | 2024-11-14 15:02 | XMS_ITS | Encounter Summary ---
Author Organization [facility] Address [address] [place] [address] Care Team Providers Care Reading Specialist Name Role Phone Kunal Ruiz MD Primary Care Provider [phone] Rivera Rizzo MD Unavailable [phone] Maria Esther Velazquez MD Unavailable [phone] Encounter Details Date Type Department Care Team (Late st Contact Info) Description 12/19/2023 Telephone [facility] Radiology [address] [place] [address] Eduin Praks, RN Social History Tobacco Use Types Packs/Day Years Used Date Smoking Tobacco: Never Passive Smoke Exposure: Past AUDIT-C Answer Date Recorded Q1: How often [...] on file Legal Sex Female 3:43 PM JUMPBASTING ARMHOLE BASTER Gender Identity Not on file Sexual Orientation Not on file documented as of this encounter Functional Status * Audit-C Score Answer Date of Assessment Author 0 12/22/2023 10:54 AM Renetta Meyers RN * Question Answer Date of Assessment Author Q1: How often do you have a drink containing alcohol? Never 12/22/2023 10:54 AM Renetta Meyers RN Q2: How many drinks containing alcohol do you have on a typical day when you are drinking? Patient does not drink 12/22/2023 10:54 AM Renetta Meyers RN Q3: How often do you have six or more drinks on one occasion? Never 12/22/2023 10:54 AM Renetta Meyers RN documented as of this encounter Plan of Treatment Not on file documented as of this encounter Visit Diagnoses Not on filedocumented in this encounter Care Teams Reading Specialist Relationship Specialty Start Date End Date Kunal Ruiz MD PCP - General Internal Medicine 01/13/23 Rivera Rizzo MD [address] [facility] [address] [address] Referring Physician Obstetrics and Gynecology 05/04/23 Maria Esther Velazquez MD [address] [facility] [place] [address] Radiation Oncologist Radiation Oncology 09/27/23 documented as of this encounter
--- OUTSIDE RECORDS SUMMARY | 2024-11-14 15:02 | XMS_ITS | Clinical Summary ---
Author Organization [facility] Address [address] [place] [id number] Care Team Providers Care Sanitarian Inspector Name Role Phone Unavailable Primary Care Provider Unavailabl e Medications aspirin EC 81 MG tablet Active vitamin D3, cholecalciferol, 1000 UNIT Tab tablet Take 1 tablet by mouth daily. Active vitamin B-12 500 MCG tablet Take 1 tablet by mouth daily. Active escitalopram 5 MG tablet 0 01/15/2019 Active escitalopram 5 MG tablet Take 1 tablet by mouth daily. 10/06/2017 Active Social History Tobacco Use Types Packs/Day Years Used Date Smoking Tobacco: Never Assessed Comments Unknown Sex and Gender Information Value Date Recorded Sex Assigned at Not on file Legal Sex Female 8:03 PM CDT Gender Identity Not on file Sexual Orientation Not on file Last Filed Vital Signs Vital Sign Reading Time Taken Comments Blood Pressure 124/70 01/19/2018 11:21 AM CDT Pulse 58 01/19/2018 11:20 AM CDT Temperature - - Respiratory Rate - - Oxygen Saturation - - Inhaled Oxygen Concentration - - Weight 64.6 kg (142 lb 6.1 oz) 01/19/2018 11:20 AM CDT Height 162.6 cm (5' 4 ) 01/19/2018 11:20 AM CDT Body Mass Index 24.44 01/19/2018 11:20 AM CDT Plan of Treatment Health Maintenance Due Date Last Done Comments Colorectal Cancer Screening Colonoscopy (10 Years) 1958 Hepatitis C 1976 DTaP, Tdap and Td Vaccines ( 1 - Tdap) 1977 Mammogram Screening 1998 Zoster Vaccines (1 of 2) 2008 Dexa Scan (General) 2023 Pneumococcal Vaccine: 65+ Ye ars (1 of 1 - PCV) 2023 COVID-19 Vaccine (2023-2 5 season) 2024 Influenza Adult (#1) 2024 RSV Immunization or 60+ Years (1 - 1-dose 75+ series) 2033 Meningococcal B Vaccine Aged Out No l onger eligible based on patient's age to complete this topic Meningococcal Vaccine Aged Out No hussain jared eligible based on patient's age to complete this topic Pneumococcal Vaccine: Pediat rics (0 to 5 Years) and At-Risk Patients (6 to 64 Years) Aged Out No longer eligible b ased on patient's age to complete this topic RSV Immunizations Under 20 Months Aged Out No longer eligible based on patient's age to complete this topic
--- OUTSIDE RECORDS SUMMARY | 2024-11-14 15:02 | XMS_ITS | Referral Summary ---
Author Organization [facility] Address [address] [place] [address] Care Team Providers Care Leather Crafter Name Role Phone Kunal Ruiz MD Primary Care Provider [phone] Rivera Rizzo MD Unavailable [phone] Maria Esther Velazquez MD Unavailable [phone] Encounters Date Type Department Care Team Description 10/08/2024 3:00 PM IT OPERATIONS MANAGER Office Visit [facility] [address] [place] [address] [facility] 13th [place] [address] [place] [address] Vanda Escobar NP Encounter for routine cancer follow-up (Primary Dx); Endometrial cancer (HCC) 09/27/2024 11:00 AM IT OPERATIONS MANAGER Lab [facility] [address] [place] [id number] Endometrial cancer (HCC) 09/27/2024 8:21 AM IT OPERATIONS MANAGER - 09/27/2024 11:59 PM IT OPERATIONS MANAGER Hospital Encounter [facility] [address] [place] [address] Endometrial cancer (HCC) Discharge Disposition: Discharge to home or self care 09/27/2024 9:20 AM IT OPERATIONS MANAGER Office Visit [facility] Radiation Oncology [address] [place] [address] [facility] [place] [address] Shreya Carlton PA Endometrial cancer (HCC) (Primary Dx) from Last 3 Months Allergies Active Allergy Reactions Criticality Noted Date Comments Alpha Lipoic Acid Hives Medium 06/21/2024 Medications escitalopram (LEXAPRO) 10 mg tablet Take 1 tablet (10 mg total) by mouth microelectronics technician before breakfast 3 Active multivit/folic acid/vit K1 (ONE-A-DAY WOMEN'S 50 PLUS ORAL) Take 1 tablet by mouth microelectronics technician before breakfast Active calcium carbonate (CALCIUM 600 ORAL) Take 1 tablet by mouth microelectronics technician before breakfast Active cyanocobalamin (Vitamin B-12) 500 mcg tabletIndicatio ns:Prevention of Vitamin B12 Deficiency Take 1 tablet (500 mcg total) by mouth microelectronics technician before breakfast Active cholecalciferol (VITAMIN D-3) 1,000 unit Take 1 tablet/capsule (1,000 Units total) by mouth microelectronics technician before breakfast Active montelukast (SINGULAIR) 10 mg [...] for bleeding 04/06/2023 Pre-procedure lab exam 04/06/202308/10 Immunizations Immunization Administration Dates Next Due Tdap 11/12/2014 ZOSTER Recombinant 02/17/2022,11/12/2021 Social History Tobacco Use Types Packs/Day Years [...] on file Legal Sex Female 3:43 PM IT OPERATIONS MANAGER Gender Identity Not on file Sexual Orientation Not on file Last Filed Vital Signs Vital Sign Reading Time Taken Comments Blood Pressure 198/91 10/08/2024 3:06 PM IT OPERATIONS MANAGER Pulse 60 10/08/2024 3:06 PM IT OPERATIONS MANAGER Temperature 36.7 C (98.1 F) 10/08/2024 3:06 PM IT OPERATIONS MANAGER Respiratory Rate 16 10/08/2024 3:06 PM IT OPERATIONS MANAGER Oxygen Saturation 97% 10/08/2024 3:06 PM IT OPERATIONS MANAGER Inhaled Oxygen Concentration - - Weight 85.3 kg (188 lb) 10/08/2024 3:06 PM IT OPERATIONS MANAGER Height 157.5 cm (5' 2.01 ) 10/08/2024 3:06 PM CS T Body Mass Index 34.38 10/08/2024 3:06 PM IT OPERATIONS MANAGER Plan of Treatment Not on file Medical Devices Implanted Type Area Trade Specialist Device Identifier Shelf Expiration Date Model / Serial / Lot [employer] Xcela Power Port 8fr [id number] - [id number] Implanted:Qty: 1 on 04/14/2023 at [facility] [employer] 09/19/2027 [id number] / / [id number] Procedures Procedure Name Priority Date/Time Associated Diagnosis Comments DIFFERENTIAL AUTO Routine 09/27/2024 10: 17 AM IT OPERATIONS MANAGER Endometrial cancer (HCC) CBC WITH AUTO DIFFERENTIAL Routine 09/27/2024 10:17 AM IT OPERATIONS MANAGER Endometrial cancer (HCC) CT CHEST ABDOMEN PELVIS W CONTRAST Schedule Routine, Read Routine (OP Routine) 09/27/2024 8:53 AM IT OPERATIONS MANAGER Endometrial cancer (HCC) POCT CREATININE - DEVICE Routine 09/27/2024 8:39 AM IT OPERATIONS MANAGER from Last 3 Months Results * Differential, auto (09/27/2024 10:17 AM IT OPERATIONS MANAGER) Neutrophil abs 3.6 1.5 - 6.5 K/cumm Imm gran abs 0.0 0.0 - 0.1 K/cumm [facility] Lymphocyte abs 1.4 0.8 - 3.3 K/cumm [facility] Monocyte abs 0.5 0.2 - 0.8 K/cumm [facility] Eosinophil abs 0.1 0.0 - 0.5 K/cumm [facility] Basophil abs 0.1 0.0 - 0.1 K/cumm [facility] Neutrophil pct 62.9 % [facility] Comment: Interpretive Data Percent cell count reference ranges are not reported, since discordance with absolute values may lead to misinterpretation of CBC data. Current Interpretive Data was last revised on 2017. Imm gran pct 0.2 % [facility] Comment: Interpretive Data Percent cell count reference ranges are not reported, since discordance with absolute values may lead to misinterpretation of CBC data. Current Interpretive Data was last revised on 2017. Lymphocyte pct 25.5 % [facility] Comment: Interpretive Data Percent cell count reference ranges are not reported, since discordance with absolute values may lead to misinterpretation of CBC data. Current Interpretive Data was last revised on 2017. Monocyte pct 8.5 % [facility] Comment: Interpretive Data Percent cell count reference ranges are not reported, since discordance with absolute values may lead to misinterpretation of CBC data. Current Interpretive Data was last revised on 2017. Eosinophil pct 1.8 % [facility] Comment: Interpretive Data Percent cell count reference ranges are not reported, since discordance with absolute values may lead to misinterpretation of CBC data. Current Interpretive Data was last revised on 2017. Basophil pct 1.1 % [facility] Comment: Interpretive Data Percent cell count reference ranges are not reported, since discordance with absolute values may lead to misinterpretation of CBC data. Current Interpretive Data was last revised on 2017. Blood 09/27/2024 10:1 7 AM IT OPERATIONS MANAGER 09/27/2024 11:04 AM IT OPERATIONS MANAGER us Shreya DAILY LAB BLOOD ORDERABLES Final Result [facility] [place] [address] * (ABNORMAL) CBC with auto differential (09/27/2024 10:17 AM IT OPERATIONS MANAGER) WBC 5.7 3.8 - 9.9 K/cumm Hgb 13.1 11.9 - 15.5 g/dL [facility] Hct 40.4 35.6 - 45.5 % [facility] Plt 364 150 - 400 K/cumm [facility] MPV 10.4 9.1 - 12.3 fL [facility] RBC 4.06 3.90 - 5.20 M/cumm [facility] MCV 99.5(H) 81.3 - 96.4 fL [facility] MCH 32.3 27.1 - 33.3 pg [facility] MCHC 32.4 32.3 - 35.7 g/dL [facility] RDW CV 13.0 11.1 - 14.9 % [facility] RDW SD 47.8 35.7 - 48.1 fL [facility] NRBC abs 0.00 0.00 - 0.01 K/cumm [facility] Blood 09/27/2024 10:1 7 AM IT OPERATIONS MANAGER 09/27/2024 11:04 AM IT OPERATIONS MANAGER Shreya DAILY LAB BLOOD ORDERABLES Final Result [facility] [place] [address] * CT Chest Abdomen Pelvis W Contrast (09/27/2024 8:53 AM IT OPERATIONS MANAGER) Anatomical Region Laterality Modality Body N/A Computed Tomogra phy 09/27/2024 9:13 AM IT OPERATIONS MANAGER Impressions 09/27/2024 9:15 AM IT OPERATIONS MANAGER 1. Postsurgical changes from total hysterectomy without evidence of metastatic disease in the chest, abdomen, or pelvis. Dictated by: Artem Marinelli M.D. The radiology attending physician has personally reviewed this study, and had reviewed and/or edited this written report and agrees with it. Electronically signed by: Matthew Piper M.D. Narrative 09/27/2024 9:15 AM IT OPERATIONS MANAGER EXAMINATION: Computed tomography of the chest, abdomen [...] it. Electronically signed by: Matthew Piper M.D. Shreya DAILY IMG CT PROCEDURES Final Res ult * POCT creatinine (09/27/2024 8:39 AM IT OPERATIONS MANAGER) Creatinine POC 0.9 0.6 - 1.1 mg/dL Blood 09/27/2024 8:39 AM IT OPERATIONS MANAGER 09/27/2024 8:39 AM IT OPERATIONS MANAGER Shreya DAILY LAB POCT ORDERABLES - DEVIC E Final Result [facility] Department [place] [address] from Last 3 Months Insurance MEDICARE [facility] Advance Directives For more information, please contact: [phone] * Full Code (Latest Code Status on File) Date Activated Date Inactivated Comments 06/02/2023 7:12 AM 06/03/2023 4:50 AM * Full Code Date Activated Date Inactivated Comments 04/14/2023 7:37 AM 04/15/2023 4:55 AM Care Teams Leather Crafter Relationship Specialty Start Date End Date Kunal Ruiz MD PCP - General Internal Medicine 01/13/23 Rivera Rizzo MD [address] [facility] [address] [place], [place] [id number] Referring Physician Obstetrics and Gynecology 05/04/23 Maria Esther Velazquez MD [address] [facility] [place] [address] Radiation Oncologist Radiation Oncology 09/27/23
--- OUTSIDE RECORDS SUMMARY | 2024-11-14 15:02 | XMS_ITS | Encounter Summary ---
Author Organization [facility] Address [address] [place] [address] Care Team Providers Care Mophead Trimmer And Wrapper Name Role Phone Kunal Ruiz MD Primary Care Provider [phone] Rivera Rizzo MD Unavailable [phone] Maria Esther Velazquez MD Unavailable [phone] Encounter Details Date Type Department Care Team (Late st Contact Info) Description 05/31/2023 Telephone [facility] Radiology [address] [place] [address] Bear Darby, RN Social History Tobacco Use Types Packs/Day [...] more drinks on one occasion? Never 01/28/2023 Personal Safety Answer Date Recorded Have you ever been in or are you currently in a harmful physical or emotional relationship or is someone making you feel afraid or unsafe? Denies 06/02/2023 Comments No Sex and Gender Information Value Date Recorded Sex Assigned at Not on file Legal Sex Female 3:43 PM ORACLE FIN[employer]CI[employer] CONSULTANT Gender Identity Not on file Sexual Orientation Not on file documented as of this encounter Plan of Treatment Not on file documented as of this encounter Visit Diagnoses Not on filedocumented in this encounter Care Teams Mophead Trimmer And Wrapper Relationship Specialty Start Date End Date Kunal Ruiz MD PCP - General Internal Medicine 01/13/23 Rivera Rizzo MD [address] [facility] [address] [address] [facility] [address] [place], [place] [phone] Referring Physician Obstetrics and Gynecology 05/04/23 Maria Esther Velazquez MD [address] [facility] [address] [place] [address] Radiation Oncologist Radiation Oncology 09/27/23 documented as of this encounter
== END 2024-11-14 13:36 | disposition home or self-care (01) ==
PROVIDERS: PCP Internal Medicine; Visit Provider Internal Medicine
DX: Z12.31 Encounter for screening mammogram for malignant neoplasm of breast (principal); Z78.0 Asymptomatic menopausal state; M85.89 Other specified disorders of bone density and structure, multiple sites
CPT/HCPCS: 77063; 77067; 77080

== ENCOUNTER 2024-11-22 00:47 | Day surgery (SDC) | payer MEDICARE, OTHER, SELFPAY ==
[2024-11-14 11:33] VITALS: BMI 32.0
--- OUTSIDE RECORDS SUMMARY | 2024-11-22 00:50 | XMS_ITS | Clinical Summary ---
Author Organization [facility] Address [address] [place] [id number] Care Team Providers Care Packing Attendant Name Role Phone Unavailable Primary Care Provider [...]
--- OUTSIDE RECORDS SUMMARY | 2024-11-22 00:50 | XMS_ITS | Clinical Summary ---
Author Organization [facility] Address [address] [place] [id number] Care Team Providers Care Automotive Metalsmith Name Role Phone Kunal Ruiz MD Primary Care Provider [phone] Rivera Rizzo MD Unavailable [phone] Maria Esther Velazquez MD Unavailable [phone] Allergies Active Allergy Reactions Criticality Noted Date Comments Alpha Lipoic Acid Hives Medium 06/21/2024 Medications escitalopram (LEXAPRO) 10 mg tablet Take 1 tablet (10 mg total) by mouth slackline operator before breakfast 3 Active multivit/folic acid/vit K1 (ONE-A-DAY WOMEN'S 50 PLUS ORAL) Take 1 tablet by mouth slackline operator before breakfast Active calcium carbonate (CALCIUM 600 ORAL) Take 1 tablet by mouth slackline operator before breakfast Active cyanocobalamin (Vitamin B-12) 500 mcg tabletIndicatio ns:Prevention of Vitamin B12 Deficiency Take 1 tablet (500 mcg total) by mouth slackline operator before breakfast Active cholecalciferol (VITAMIN D-3) 1,000 unit Take 1 tablet/capsule (1,000 Units total) by mouth slackline operator before breakfast Active montelukast (SINGULAIR) 10 mg [...] Department Care Team Description 10/08/2024 3:00 PM MEDICAL CENTER MANAGER Office Visit [facility] Obstetrics and Gynecology [address] [place] [address] Advanced Medicine 13th [place] [address] [place] [address] Vanda Escobar NP Encounter for routine cancer follow-up (Primary Dx); Endometrial cancer (HCC) 09/27/2024 11:00 AM MEDICAL CENTER MANAGER Lab [facility] ([facility]) [address] [place] [phone] Endometrial cancer (HCC) 09/27/2024 9:20 AM MEDICAL CENTER MANAGER Office Visit [facility] Radiation Oncology [address] [place] [address] [facility] [place] [address] Shreya Carlton PA Endometrial cancer (HCC) (Primary Dx) 09/27/2024 8:21 AM MEDICAL CENTER MANAGER - 09/27/2024 11:59 PM MEDICAL CENTER MANAGER Hospital Encounter [facility] Radiology [place] [facility] ([facility]) [address] [place] [id number] Endometrial cancer (HCC) Discharge Disposition: Discharge to [...] on file Legal Sex Female 3:43 PM MEDICAL CENTER MANAGER Gender Identity Not on file Sexual [...] Comments Blood Pressure 198/91 10/08/2024 3:06 PM MEDICAL CENTER MANAGER Pulse 60 10/08/2024 3:06 PM MEDICAL CENTER MANAGER Temperature 36.7 C (98.1 F) 10/08/2024 3:06 PM MEDICAL CENTER MANAGER Respiratory Rate 16 10/08/2024 3:06 PM MEDICAL CENTER MANAGER Oxygen Saturation 97% 10/08/2024 3:06 PM MEDICAL CENTER MANAGER Inhaled Oxygen Concentration - - Weight 85.3 kg (188 lb) 10/08/2024 3:06 PM MEDICAL CENTER MANAGER Height 157.5 cm (5' 2.01 ) 10/08/2024 3:06 PM CS T Body Mass Index 34.38 10/08/2024 3:06 PM MEDICAL CENTER MANAGER Plan of Treatment Health Maintenance Due Date [...] 02/17/2022, 11/12/2021 Medical Devices Implanted Type Area Hot Metal Car Operator Device Identifier Shelf Expiration Date Model / Serial / Lot [employer] Xcela Power Port 8fr [id number] - [id number] Implanted:Qty: 1 on 04/14/2023 at [facility] [employer] 09/19/2027 [id number] / / [id number] Procedures Procedure Name Priority Date/Time Associated Diagnosis Comments DIFFERENTIAL AUTO Routine 09/27/2024 10: 17 AM MEDICAL CENTER MANAGER Endometrial cancer (HCC) CBC WITH AUTO DIFFERENTIAL Routine 09/27/2024 10:17 AM MEDICAL CENTER MANAGER Endometrial cancer (HCC) CT CHEST ABDOMEN PELVIS W CONTRAST Schedule Routine, Read Routine (OP Routine) 09/27/2024 8:53 AM MEDICAL CENTER MANAGER Endometrial cancer (HCC) POCT CREATININE - DEVICE Routine 09/27/2024 8:39 AM MEDICAL CENTER MANAGER from Last 3 Months Results * Differential, auto (09/27/2024 10:17 AM MEDICAL CENTER MANAGER) Neutrophil abs 3.6 1.5 - 6.5 [...] on 2017. Imm gran pct 0.2 % [facility] Comment: Interpretive Data Percent cell count reference ranges are not reported, since discordance with absolute values may lead to misinterpretation of CBC data. Current Interpretive Data was last revised on 2017. Lymphocyte pct 25.5 % [facility] Comment: Interpretive Data Percent cell count reference ranges are not reported, since discordance with absolute values may lead to misinterpretation of CBC data. Current Interpretive Data was last revised on 2017. Monocyte pct 8.5 % [facility] Comment: Interpretive Data Percent cell count reference ranges are not reported, since discordance with absolute values may lead to misinterpretation of CBC data. Current Interpretive Data was last revised on 2017. Eosinophil pct 1.8 % [facility] Comment: Interpretive Data Percent cell count reference ranges are not reported, since discordance with absolute values may lead to misinterpretation of CBC data. Current Interpretive Data was last revised on 2017. Basophil pct 1.1 % [facility] Comment: Interpretive Data Percent cell count reference ranges are not reported, since discordance with absolute values may lead to misinterpretation of CBC data. Current Interpretive Data was last revised on 2017. Blood 09/27/2024 10:1 7 AM MEDICAL CENTER MANAGER 09/27/2024 11:04 AM MEDICAL CENTER MANAGER Shreya DAILY LAB BLOOD ORDERABLES Final Result [facility] One [facility] [place] [address] * (ABNORMAL) CBC with auto differential (09/27/2024 10:17 AM MEDICAL CENTER MANAGER) WBC 5.7 3.8 - 9.9 K/cumm Hgb 13.1 11.9 - 15.5 g/dL [facility] Hct 40.4 35.6 - 45.5 % [facility] Plt 364 150 - 400 K/cumm [facility] MPV 10.4 9.1 - 12.3 fL [facility] RBC 4.06 3.90 - 5.20 M/cumm [facility] MCV 99.5(H) 81.3 - 96.4 fL [facility] MCH 32.3 27.1 - 33.3 pg [facility] MCHC 32.4 32.3 - 35.7 g/dL [facility] RDW CV 13.0 11.1 - 14.9 % [facility] RDW SD 47.8 35.7 - 48.1 fL [facility] NRBC abs 0.00 0.00 - 0.01 K/cumm [facility] Blood 09/27/2024 10:1 7 AM MEDICAL CENTER MANAGER 09/27/2024 11:04 AM MEDICAL CENTER MANAGER us Shreya DAILY LAB BLOOD ORDERABLES Final Result Performing Organization Address City/State/[facility] Co de Phone Number [facility] One [facility] Department [place] [address] * CT Chest Abdomen Pelvis W Contrast (09/27/2024 8:53 AM MEDICAL CENTER MANAGER) Anatomical Region Laterality Modality Body N/A Computed Tomogra phy 09/27/2024 9:13 AM MEDICAL CENTER MANAGER Impressions 09/27/2024 9:15 AM MEDICAL CENTER MANAGER 1. Postsurgical changes from total hysterectomy without evidence of metastatic disease in the chest, abdomen, or pelvis. Dictated by: Artem Marinelli M.D. The radiology attending physician has personally reviewed this study, and had reviewed and/or edited this written report and agrees with it. Electronically signed by: Matthew Piper M.D. Narrative 09/27/2024 9:15 AM MEDICAL CENTER MANAGER EXAMINATION: Computed tomography of the chest, [...] ult * POCT creatinine (09/27/2024 8:39 AM MEDICAL CENTER MANAGER) Creatinine POC 0.9 0.6 - 1.1 mg/dL Blood 09/27/2024 8:39 AM MEDICAL CENTER MANAGER 09/27/2024 8:39 AM MEDICAL CENTER MANAGER Shreya DAILY LAB POCT ORDERABLES - DEVIC E Final Result Performing Organization Address City/State/ZIP Co ne Phone Number [facility] One [facility] Department [place] [address] from Last 3 Months Insurance MEDICARE [facility] MEDICARE [facility] [place] [id number] Advance Directives For more information, please contact: [phone] * Full Code (Latest Code Status on File) Date Activated Date Inactivated Comments 06/02/2023 7:12 AM 06/03/2023 4:50 AM * Full Code Date Activated Date Inactivated Comments 04/14/2023 7:37 AM 04/15/2023 4:55 AM Care Teams Automotive Metalsmith Relationship Specialty Start Date End Date Kunal Ruiz MD PCP - General Internal Medicine 01/13/23 Rivera Rizzo MD [address] [address] Referring Physician Obstetrics and Gynecology 05/04/23 Maria Esther Velazquez MD [address] [facility] [address] Radiation Oncologist Radiation Oncology 09/27/23
--- OUTSIDE RECORDS SUMMARY | 2024-11-22 00:50 | XMS_ITS | Referral Summary ---
Author Organization [facility] Address [address] [place] [address] Care Team Providers Care Truss Puller Helper Name Role Phone Kunal Ruiz MD Primary Care Provider [phone] Rivera Rizzo MD Unavailable [phone] Maria Esther Velazquez MD Unavailable [phone] Encounters Date Type Department Care Team Description 10/08/2024 3:00 PM LANDSCAPE ARTIST Office Visit [facility] Obstetrics and Gynecology [address] [place] [address] [facility] 13th [place] [address] [place] [address] Vanda Escobar NP Encounter for routine cancer follow-up (Primary Dx); Endometrial cancer (HCC) 09/27/2024 11:00 AM LANDSCAPE ARTIST Lab [facility] ([facility]) [address] [place] [phone] Endometrial cancer (HCC) 09/27/2024 8:21 AM LANDSCAPE ARTIST - 09/27/2024 11:59 PM LANDSCAPE ARTIST Hospital Encounter [facility] Radiology [facility]) [address] [place] [phone] Endometrial cancer (HCC) Discharge Disposition: Discharge to home or self care 09/27/2024 9:20 AM LANDSCAPE ARTIST Office Visit [facility] Advanced Medicine Radiation Oncology [address] [place] [address] [facility] [place] [address] Shreya Carlton PA Endometrial cancer (HCC) (Primary Dx) from Last 3 Months Allergies Active Allergy Reactions Criticality Noted Date Comments Alpha Lipoic Acid Hives Medium 06/21/2024 Medications escitalopram (LEXAPRO) 10 mg tablet Take 1 tablet (10 mg total) by mouth jumpbasting facing baster before breakfast 3 Active multivit/folic acid/vit K1 (ONE-A-DAY WOMEN'S 50 PLUS ORAL) Take 1 tablet by mouth jumpbasting facing baster before breakfast Active calcium carbonate (CALCIUM 600 ORAL) Take 1 tablet by mouth jumpbasting facing baster before breakfast Active cyanocobalamin (Vitamin B-12) 500 mcg tabletIndicatio ns:Prevention of Vitamin B12 Deficiency Take 1 tablet (500 mcg total) by mouth jumpbasting facing baster before breakfast Active cholecalciferol (VITAMIN D-3) 1,000 unit Take 1 tablet/capsule (1,000 Units total) by mouth jumpbasting facing baster before breakfast Active montelukast (SINGULAIR) 10 mg [...] on file Legal Sex Female 3:43 PM LANDSCAPE ARTIST Gender Identity Not on file Sexual Orientation Not on file Last Filed Vital Signs Vital Sign Reading Time Taken Comments Blood Pressure 198/91 10/08/2024 3:06 PM LANDSCAPE ARTIST Pulse 60 10/08/2024 3:06 PM LANDSCAPE ARTIST Temperature 36.7 C (98.1 F) 10/08/2024 3:06 PM LANDSCAPE ARTIST Respiratory Rate 16 10/08/2024 3:06 PM LANDSCAPE ARTIST Oxygen Saturation 97% 10/08/2024 3:06 PM LANDSCAPE ARTIST Inhaled Oxygen Concentration - - Weight 85.3 kg (188 lb) 10/08/2024 3:06 PM LANDSCAPE ARTIST Height 157.5 cm (5' 2.01 ) 10/08/2024 3:06 PM CS T Body Mass Index 34.38 10/08/2024 3:06 PM LANDSCAPE ARTIST Plan of Treatment Not on file Medical Devices Implanted Type Area Light Bulb Tester Device Identifier Shelf Expiration Date Model / Serial / Lot [employer] Xcela Power Port 8fr [id number] - [id number] Implanted:Qty: 1 on 04/14/2023 at [facility] [employer] 09/19/2027 [id number] / / [id number] Procedures Procedure Name Priority Date/Time Associated Diagnosis Comments DIFFERENTIAL AUTO Routine 09/27/2024 10: 17 AM LANDSCAPE ARTIST Endometrial cancer (HCC) CBC WITH AUTO DIFFERENTIAL Routine 09/27/2024 10:17 AM LANDSCAPE ARTIST Endometrial cancer (HCC) CT CHEST ABDOMEN PELVIS W CONTRAST Schedule Routine, Read Routine (OP Routine) 09/27/2024 8:53 AM LANDSCAPE ARTIST Endometrial cancer (HCC) POCT CREATININE - DEVICE Routine 09/27/2024 8:39 AM LANDSCAPE ARTIST from Last 3 Months Results * Differential, auto (09/27/2024 10:17 AM LANDSCAPE ARTIST) Neutrophil abs 3.6 1.5 - 6.5 K/cumm Imm gran abs 0.0 0.0 - 0.1 K/cumm [facility] Lymphocyte abs 1.4 0.8 - 3.3 K/cumm [facility] Monocyte abs 0.5 0.2 - 0.8 K/cumm [facility] Eosinophil abs 0.1 0.0 - 0.5 K/cumm [facility] Basophil abs 0.1 0.0 - 0.1 K/cumm [facility] Neutrophil pct 62.9 % [facility] Comment: Interpretive Data Percent cell count reference ranges are not reported, since discordance with absolute values may lead to misinterpretation of CBC data. Current Interpretive Data was last revised on 2017. Imm gran pct 0.2 % [facility] Comment: Interpretive Data Percent cell count reference ranges are not reported, since discordance with absolute values may lead to misinterpretation of CBC data. Current Interpretive Data was last revised on 2017. Lymphocyte pct 25.5 % [facility] Comment: Interpretive Data Percent cell count reference ranges are not reported, since discordance with absolute values may lead to misinterpretation of CBC data. Current Interpretive Data was last revised on 2017. Monocyte pct 8.5 % [facility] Comment: Interpretive Data Percent cell count reference ranges are not reported, since discordance with absolute values may lead to misinterpretation of CBC data. Current Interpretive Data was last revised on 2017. Eosinophil pct 1.8 % [facility] Comment: Interpretive Data Percent cell count reference ranges are not reported, since discordance with absolute values may lead to misinterpretation of CBC data. Current Interpretive Data was last revised on 2017. Basophil pct 1.1 % [facility] Comment: Interpretive Data Percent cell count reference ranges are not reported, since discordance with absolute values may lead to misinterpretation of CBC data. Current Interpretive Data was last revised on 2017. Blood 09/27/2024 10:1 7 AM LANDSCAPE ARTIST 09/27/2024 11:04 AM LANDSCAPE ARTIST us Shreya DAILY LAB BLOOD ORDERABLES Final Result [facility] Department [place] [address] * (ABNORMAL) CBC with auto differential (09/27/2024 10:17 AM LANDSCAPE ARTIST) WBC 5.7 3.8 - 9.9 K/cumm Hgb 13.1 11.9 - 15.5 g/dL [facility] Hct 40.4 35.6 - 45.5 % [facility] Plt 364 150 - 400 K/cumm [facility] MPV 10.4 9.1 - 12.3 fL [facility] RBC 4.06 3.90 - 5.20 M/cumm [facility] MCV 99.5(H) 81.3 - 96.4 fL [facility] MCH 32.3 27.1 - 33.3 pg [facility] MCHC 32.4 32.3 - 35.7 g/dL [facility] RDW CV 13.0 11.1 - 14.9 % [facility] RDW SD 47.8 35.7 - 48.1 fL [facility] NRBC abs 0.00 0.00 - 0.01 K/cumm [facility] Blood 09/27/2024 10:1 7 AM LANDSCAPE ARTIST 09/27/2024 11:04 AM LANDSCAPE ARTIST Shreya DAILY LAB BLOOD ORDERABLES Final Result [facility] [place] [address] * CT Chest Abdomen Pelvis W Contrast (09/27/2024 8:53 AM LANDSCAPE ARTIST) Anatomical Region Laterality Modality Body N/A Computed Tomogra phy 09/27/2024 9:13 AM LANDSCAPE ARTIST Impressions 09/27/2024 9:15 AM LANDSCAPE ARTIST 1. Postsurgical changes from total hysterectomy without evidence of metastatic disease in the chest, abdomen, or pelvis. Dictated by: Artem Marinelli M.D. The radiology attending physician has personally reviewed this study, and had reviewed and/or edited this written report and agrees with it. Electronically signed by: Matthew Piper M.D. Narrative 09/27/2024 9:15 AM LANDSCAPE ARTIST EXAMINATION: Computed tomography of the chest, abdomen [...] ult * POCT creatinine (09/27/2024 8:39 AM LANDSCAPE ARTIST) Creatinine POC 0.9 0.6 - 1.1 mg/dL Blood 09/27/2024 8:39 AM LANDSCAPE ARTIST 09/27/2024 8:39 AM LANDSCAPE ARTIST Shreya DAILY LAB POCT ORDERABLES - DEVIC E Final Result [facility] Department [place] [address] from Last 3 Months Insurance MEDICARE [facility] MEDICARE [facility] Advance Directives For more information, please contact: [phone] * Full Code (Latest Code Status on File) Date Activated Date Inactivated Comments 06/02/2023 7:12 AM 06/03/2023 4:50 AM * Full Code Date Activated Date Inactivated Comments 04/14/2023 7:37 AM 04/15/2023 4:55 AM Care Teams Truss Puller Helper Relationship Specialty Start Date End Date Kunal Ruiz MD PCP - General Internal Medicine 01/13/23 Rivera Rizzo MD [address] [facility] [address] [place], [place] [id number] Referring Physician Obstetrics and Gynecology 05/04/23 Maria Esther Velazquez MD [address] [facility] [place] [address] Radiation Oncologist Radiation Oncology 09/27/23
--- OUTSIDE RECORDS SUMMARY | 2024-11-22 00:50 | XMS_ITS | Encounter Summary ---
Author Organization [facility] Healthcare Address [address] [place] [address] Care Team Providers Care Escort Vehicle Driver Name Role Phone Kunal Ruiz MD Primary Care Provider [phone] Rivera Rizzo MD Unavailable [phone] Maria Esther Velazquez MD Unavailable [phone] Encounter Details Date Type Department Care Team (Late st Contact Info) Description 05/31/2023 Telephone [facility] Radiology [address] [place] [address] Bear Darby, RN Social History [...] on file Legal Sex Female 3:43 PM INSTRUMENTATION MANAGER Gender Identity Not on file Sexual Orientation Not on file documented as of this encounter Plan of Treatment Not on file documented as of this encounter Visit Diagnoses Not on filedocumented in this encounter Care Teams Escort Vehicle Driver Relationship Specialty Start Date End Date Kunal Ruiz MD PCP - General Internal Medicine 01/13/23 Rivera Rizzo MD [address] [facility] [address] [facility] [address] [place], [place] [id number] Referring Physician Obstetrics and Gynecology 05/04/23 Maria Esther Velazquez MD [address] [facility] [address] Radiation Oncologist Radiation Oncology 09/27/23 documented as of this encounter
--- OUTSIDE RECORDS SUMMARY | 2024-11-22 00:50 | XMS_ITS | Encounter Summary ---
Author Organization [facility] Healthcare Address [address] [place] [address] Care Team Providers Care Shovel Mechanic Name Role Phone Kunal Ruiz MD Primary Care Provider [phone] Rivera Rizzo MD Unavailable [phone] Maria Esther Velazquez MD Unavailable [phone] Encounter Details Date Type Department Care Team (Late st Contact Info) Description 04/12/2023 Telephone [facility] Radiology [facility] [address] [place] [address] Oly Barrera RN Social History Tobacco Use [...] on file Legal Sex Female 3:43 PM OXIDATION ENGINEER Gender Identity Not on file Sexual Orientation Not on file documented as of this encounter Plan of Treatment Not on file documented as of this encounter Visit Diagnoses Not on filedocumented in this encounter Care Teams Shovel Mechanic Relationship Specialty Start Date End Date Kunal Ruiz MD PCP - General Internal Medicine 01/13/23 Rivera Rizzo MD [address] [facility] [address] [facility] [address] [place] [address] Referring Physician Obstetrics and Gynecology 05/04/23 Maria Esther Velazquez MD [address] [facility] [place] [address] Radiation Oncologist Radiation Oncology 09/27/23 documented as of this encounter
--- OUTSIDE RECORDS SUMMARY | 2024-11-22 00:50 | XMS_ITS ---
Author Organization [facility] Address [address] [place] [address] Care Team Providers Care Daytime Caregiver Name Role Phone Kunal Ruiz MD Primary Care Provider [phone] Rivera Rizzo MD Unavailable [phone] Maria Esther Velazquez MD Unavailable [phone] Active Problems Problem Noted Date Diagnosed Date [...] CARBOplatin (AUC 4) 21 Day Cycles - DAYCARE MANAGER (Carbo Locked) 04/12/2023 11/23/2023 CARBOplatin (by AUC:GOG) [...]
--- OUTSIDE RECORDS SUMMARY | 2024-11-22 00:50 | XMS_ITS | Encounter Summary ---
Author Organization [facility] Address [address] [place] [address] Care Team Providers Care Basic Sciences Dean Name Role Phone Kunal Ruiz MD Primary Care Provider [phone] Rivera Rizzo MD Unavailable [phone] Maria Esther Velazquez MD Unavailable [phone] Encounter Details Date Type Department Care Team (Late st Contact Info) Description 12/19/2023 Telephone [facility] Radiology 1 [place] [address] Eduin Parks, RN Social History Tobacco Use Types Packs/Day [...] on file Legal Sex Female 3:[address] CHANGE ROOF BOLTER Gender Identity Not on file Sexual Orientation [...] on filedocumented in this encounter Care Teams Basic Sciences Dean Relationship Specialty Start Date End Date Kunal Ruiz MD PCP - General Internal Medicine 01/13/23 Rivera Rizzo MD [address] [facility] [address] [address] Referring Physician Obstetrics and Gynecology 05/04/23 Maria Esther Velazquez MD [address] [facility] [place] [address] Radiation Oncologist Radiation Oncology 09/27/23 documented as of this encounter
[2024-11-22 07:02] VITALS: BP 144/85; PULSE 56; RESP 18; TEMP 36.1; O2SAT 100
[2024-11-22] MEDS: LACTATED RINGERS 1,000 ML 150 ML IV CONT (07:09)
--- NOTE | 2024-11-22 07:12 | P.PNAN_ITS ---
Anes - Initial Pre Proc Eval Procedure: Operation Date: 11/22/24 08:00 Proposed Procedures p Screening Colonoscopy - Keyon Alvarez DO Date/Time: 11/22/24 07:12 Surgeon: Keyon Alvarez DO Pre Op Diagnosis: Screening for malignant neoplasm of colon Patient Data Age: 64 Gender: F Height: 1.6 m Weight: 80.1 kg Last Vital Signs Temp 36.1 C L 11/22/24 07:02 Pulse 56 L 11/22/24 07:02 Resp 18 11/22/24 07:02 BP 144/85 H 11/22/24 07:02 Pulse Ox 100 11/22/24 07:02 O2 Del Method Room Air 11/22/24 07:02 Allergies Allergy/AdvReac Type Severity Reaction Status Date / Time acetaminophen (From Vicodin) Allergy unknown Verified 11/14/24 11:30 azithromycin Allergy unknown Verified 11/14/24 11:30 hydrocodone (From Vicodin) Allergy unknown Verified 11/14/24 11:30 tramadol Allergy unknown Verified 11/14/24 11:30 Home Medications ?Medication ?Instructions ?Recorded ?Confirmed ?Type calcium carbonate (Calcium 600) 600 mg PO DAILY 04/08/21 11/22/24 History cholecalciferol (vitamin D3) 25 25 mcg PO DAILY 04/08/21 11/22/24 History mcg (1,000 unit) capsule escitalopram oxalate 5 mg tablet 5 mg PO DAILY 04/08/21 11/22/24 History multivitamin (Daily Multi-Vitamin 1 tablet PO DAILY 04/08/21 11/22/24 History tablet) vitamin B complex (B 1 tablet PO DAILY 04/08/21 11/22/24 History Complex-Vitamin B12 tablet) hydroxyzine HCl 25 mg tablet 25 mg PO TID PRN itching #20 tabs 05/18/23 11/22/24 Rx ondansetron HCl 8 mg tablet 8 mg PO Q4H PRN Nausea And Vomiting 05/18/23 11/14/24 History mecobalamin (vitamin B12) 500 mcg 500 mcg PO DAILY 11/14/24 11/22/24 History chewable tablet Patient hx anesthesia problems: none Family hx anesthesia problems: none Results Review: All pre-operative results and documents have been reviewed as part of the pre- operative evaluation. [facility] Past Medical History Medical History Vaginal delivery x 2 DVT (deep venous thrombosis) Surgical History Surgical History History of appendectomy History of bilateral tubal ligation Family History Family History Sibling Cerebrovascular accident Daughter Diabetes mellitus Thyroid disorder Social History Social History Smoking status: Never smoker Alcohol intake: never Substance use: never Lack of Transportation: No Lack of Food: Never True Current Housing: I Have Housing Concerned About Future Housing: No Difficulty Paying Gas/Electric Bills: No Difficulty Paying for Meds: No Currently Unemployed: No Education: High School Diploma/GED Difficulty w/ Childcare or Family Care: No Gender identity (if verbalized by the patient): Female Sexual Orientation (if Verbalized by the Patient): Straight or Heterosexual Spiritual care concerns: No Agree to blood products: Yes Anes - Eval Final PreProcedure Day of Procedure 11/22/24 07:12 Patient weight: obese Heart: regular rate and rhythm Lungs: clear to auscultation Airway: Mallampati scale class II Neurological: alert and oriented Last oral intake: >/= 8 hours ASA classification: II Emergent: no Anesthetic plan: proceed Anesthesia type and monitoring: general GIVS and standard monitoring Results Review: All pre-operative results and documents have been reviewed as part of the pre- operative evaluation. Informed Consent: The patient's anesthetic plan and its attendant risks and benefits were discussed with the patient/family/POA. Questions were solicited and answers provided to the satisfaction of the patient/family/POA.
--- NOTE | 2024-11-22 07:47 | PM.IMHP ---
H&P: HPI History of Present Illness Date/Time: 11/22/24 07:47 Chief Complaint: Screening for colorectal cancer Narrative: this is a 64-year-old woman who presents for colonoscopy. Her last colonoscopy was about 5 years ago. She has had a recent history ovarian cancer and underwent total abdominal hysterectomy with bilateral salpingo oophorectomy followed by chemotherapy and radiation. oncologist was recommending proceeding with another colonoscopy. She denies any hematochezia or melena. She denies family history of colon cancer. Review of Systems Review of Systems: All systems reviewed & are unremarkable except as noted in HPI and below Constitutional: Constitutional: Denies chills, Denies fever(s), Denies headache(s) and Denies weight loss Eyes: Eyes: Denies change in vision ENT: Denies dizziness, Denies headache(s), Denies neck mass and Denies throat swelling Cardiovascular: Cardiovascular: Denies chest pain, Denies lightheadedness and Denies dyspnea Respiratory: Respiratory: Denies cough, Denies dyspnea and Denies wheezing Gastrointestinal: Gastrointestinal: Denies abdominal pain, Denies change in bowel habits, Denies nausea and Denies vomiting Genitourinary: Genitourinary: Denies hematuria and Denies dysuria Musculoskeletal: Musculoskeletal: Reports as per HPI Integumentary/Breasts: Skin/Breast: Reports as per HPI Neurologic: Denies dizziness and Denies headache(s) Allergic/Immunologic: Allergic/Immunologic: Denies throat swelling and Denies wheezing PMF Past Medical History Medical History Vaginal delivery x 2 DVT (deep venous thrombosis) Surgical History Surgical History History of appendectomy History of bilateral tubal ligation Family History Family History Sibling Cerebrovascular accident Daughter Diabetes mellitus Thyroid disorder Social History Social History Smoking status: Never smoker Alcohol intake: never Substance use: never Lack of Transportation: No Lack of Food: Never True Current Housing: I Have Housing Concerned About Future Housing: No Difficulty Paying Gas/Electric Bills: No Difficulty Paying for Meds: No Currently Unemployed: No Education: High School Diploma/GED Difficulty w/ Childcare or Family Care: No Gender identity (if verbalized by the patient): Female Sexual Orientation (if Verbalized by the Patient): Straight or Heterosexual Spiritual care concerns: No Agree to blood products: Yes Meds Home Medications and Allergies Home Medications ?Medication ?Instructions ?Recorded ?Confirmed ?Type calcium carbonate (Calcium 600) 600 mg PO DAILY 04/08/21 11/22/24 History cholecalciferol (vitamin D3) 25 25 mcg PO DAILY 04/08/21 11/22/24 History mcg (1,000 unit) capsule escitalopram oxalate 5 mg tablet 5 mg PO DAILY 04/08/21 11/22/24 History multivitamin (Daily Multi-Vitamin 1 tablet PO DAILY 04/08/21 11/22/24 History tablet) vitamin B complex (B 1 tablet PO DAILY 04/08/21 11/22/24 History Complex-Vitamin B12 tablet) hydroxyzine HCl 25 mg tablet 25 mg PO TID PRN itching #20 tabs 05/18/23 11/22/24 Rx ondansetron HCl 8 mg tablet 8 mg PO Q4H PRN Nausea And Vomiting 05/18/23 11/14/24 History mecobalamin (vitamin B12) 500 mcg 500 mcg PO DAILY 11/14/24 11/22/24 History chewable tablet Allergies Allergy/AdvReac Type Severity Reaction Status Date / Time acetaminophen (From Vicodin) Allergy unknown Verified 11/14/24 11:30 azithromycin Allergy unknown Verified 11/14/24 11:30 hydrocodone (From Vicodin) Allergy unknown Verified 11/14/24 11:30 tramadol Allergy unknown Verified 11/14/24 11:30 Vital Signs Vital Signs - 24 hr 11/22/24 07:02 Temperature 97 F L Pulse Rate 56 L Respiratory Rate 18 Blood Pressure 144/85 H Pulse Oximetry 100 Oxygen Delivery Room Air Exam Const: General: no acute distress and alert Orientation/consciousness: patient oriented x3 HENMT: Head: normocephalic and atraumatic Ears: hearing grossly normal bilaterally Face/Nose/Sinus: Normal nares present Mouth: Yes Normal oral and palatal mucosa present Eyes: Periorbital: periorbital findings normal Sclera: sclerae normal EOM: EOMs intact bilaterally Neck: Neck: normal visual inspection, no lymphadenopathy and trachea midline Chest: Chest palpation & inspection: normal inspection of the chest Resp: Effort & Inspection: normal respiratory effort Auscultation: clear to auscultation bilaterally Cardio: Jugular venous distension: no JVD Rate: regular rate Rhythm: regular rhythm Heart sounds: S1 normal heart sound present and S2 normal heart sound present Peripheral pulses: Peripheral pulses 2+ throughout GI: Inspection: normal to inspection GI Palp: Yes Soft to palpation, No Tenderness to palpation present (GI), No Guarding due to palpation present (GI) and No Rebound tenderness present Percussion: Yes normal to percussion Auscultation: normal bowel sounds : General: Yes no CVA tenderness Back/Spine/Pelvis: Back: no CVA tenderness Neuro: General: patient oriented x3, no focal motor deficits and CN's II-XI intact bilaterally Cognition (Neuro): normal cognition Speech: normal speech Motor exam (neuro): 5/5 motor strength present throughout Extrem: General: capillary refill normal and no clubbing, cyanosis or edema Assessment and Plan Assessment and plan (1) Screening for colorectal cancer: Code(s): Z12.11 - Encounter for screening for malignant neoplasm of colon; Z12.12 - Encounter for screening for malignant neoplasm of rectum Status: Acute Assessment and Plan: I have recommended colonoscopy. I have discussed the procedure, risks, benefits, and alternatives. Questions were answered. Patient is agreeable to proceed.
[2024-11-22 08:14] VITALS: BP 132/66; PULSE 65; RESP 15; O2SAT 98
[2024-11-22 08:24] VITALS: BP 145/73; PULSE 60; RESP 17; O2SAT 99
[2024-11-22 08:34] VITALS: BP 166/85; PULSE 58; RESP 23; O2SAT 100
== END 2024-11-22 08:39 | disposition home or self-care (01) ==
PROVIDERS: PCP Internal Medicine; Visit Provider Surgery
PROC: 0DJD8ZZ Inspection of Lower Intestinal Tract, Via Natural or Artificial Opening Endoscopic (ICD-10-PCS; CPT 45378; principal; 2024-11-22 08:00)
DX: Z12.11 Encounter for screening for malignant neoplasm of colon (principal); K63.5 Polyp of colon; E66.9 Obesity, unspecified; Z68.31 Body mass index [BMI] 31.0-31.9, adult; Z98.890 Other specified postprocedural states; Z98.51 Tubal ligation status; Z85.43 Personal history of malignant neoplasm of ovary; Z92.3 Personal history of irradiation; Z92.21 Personal history of antineoplastic chemotherapy; Z86.718 Personal history of other venous thrombosis and embolism; Z82.49 Family history of ischemic heart disease and other diseases of the circulatory system
CPT/HCPCS: 45380; 45385; 88305; J2003; J2704; J7120

== ENCOUNTER 2025-07-31 10:23 | Outpatient (CLI) | payer MEDICARE, OTHER, SELFPAY ==
--- NOTE | ~2025-07-31 | XR_ITS ---
XR lumbar spine 2-3V Indication: LBP X 3 months Comparison: None Findings: The vertebral heights are intact. No fracture or subluxation. Severe loss of disc at L4-5 and L5-S1. Soft tissues unremarkable Impression: No acute abnormality. Reviewed, dictated and finalized at location P. MACHINE OPERATOR Impression: No acute abnormality.
== END 2025-07-31 10:24 | disposition home or self-care (01) ==
LOC: CHSIMG 10:24
PROVIDERS: PCP Internal Medicine; Visit Provider Nurse Practitioner Family
DX: M54.50 Low back pain, unspecified (principal)
CPT/HCPCS: 72100

== ENCOUNTER 2025-08-17 16:31 | Emergency (ER) | payer MEDICARE, OTHER, SELFPAY ==
--- NOTE | ~2025-08-17 | CT_ITS ---
EXAMINATION: CT lumbar spine wo con COMPARISON: None HISTORY: Low back pain; radiates into Rt. knee x3 wks; worsening. NKI TECHNIQUE: Axial images were obtained through the spine without IV contrast. Coronal, sagittal reconstruction images were obtained from the axial views. CT scan performed using dose optimization techniques including the following automated exposure control; adjustment of mA and/or kV; use of iterative reconstruction technique. Automatic exposure control was used to reduce radiation dose. Permanent radiation dose record is archived to PACS. FINDINGS: There are remote bilateral healing fractures of the sacral alar. Severe loss of disc height at L1-2, L2-3, L4-5 and L5-S1 with moderate to severe canal and foraminal stenosis. Soft tissues unremarkable. Impression: 1. Remote fractures detailed above. No acute fractures identified. Moderate to severe degenerative changes, MRI suggested to further evaluate. Reviewed, dictated and finalized at location [facility] Impression: 1. Remote fractures detailed above. No acute fractures identified. Moderate to severe degenerative changes, MRI suggested to further evaluate.
[2025-08-17 16:31] VITALS: BP 193/106; PULSE 57; RESP 18; TEMP 36.9; O2SAT 95
[2025-08-17] MEDS: KETOROLAC 30 MG/ML VIAL (*BKC) IM (16:52)
--- OUTSIDE RECORDS SUMMARY | 2025-08-17 17:03 | XMS_ITS | Clinical Summary ---
Author Organization [facility] Address [address] [place] [address] Care Team Providers Care Lockstitch Topstitcher Name Role Phone Unavailable Primary Care Provider [...] 11:20 AM CDT Height 162.6 cm (5' 4) 01/19/2018 11:20 AM CDT Body Mass Index 24.44 01/19/2018 11:20 AM CDT Plan of Treatment Health Maintenance Due Date Last Done Comments Colorectal Cancer Screening Colonoscopy (10 Years) 1958 Hepatitis C 1976 DTaP, Tdap and Td Vaccines ( 1 - Tdap) 1977 Mammogram Screening 1998 Pneumococcal Vaccine: 50+ Ye ars (1 of 1 - PCV) 2008 Zoster Vaccines (1 of 2) 2008 Dexa Scan (General) 2023 COVID-19 Vaccine (1 - 2024-2 6 season) 2025 Influenza Adult (#1) 2025 RSV Immunization or 60+ Years (1 - 1-dose 75+ series) 2033 Hepatitis A Vaccines Aged Out No long er eligible based on patient's age to complete this topic Meningococcal B Vaccine Aged Out No l onger eligible based on patient's age to complete this topic Meningococcal Vaccine Aged Out No hussain jared eligible based on patient's age to complete this topic RSV Immunizations Under 20 Months Aged Out No longer eligible based on patient's age to complete this topic
--- OUTSIDE RECORDS SUMMARY | 2025-08-17 17:03 | XMS_ITS ---
Author Organization [facility] Address [address] [place] [address] Care Team Providers Care Fisher Reef Net Name Role Phone Kunal Ruiz MD Primary Care Provider [phone] Rivera Rizzo MD Unavailable [phone] Maria Esther Velazquez MD Unavailable [phone] Geoff Gan MD Unavailable [phone] Active Problems Problem Noted Date Diagnosed Date Allergic reaction to drug 05/23/2025 Postmenopausal bleeding 05/23/2025 Vaginal atrophy 05/23/2025 Endometrial cancer 01/20/2023 Cancer Staging:Pathologic stage from 02/14/2023:FIGO Stage IB(pT1b, pN0, cM0) - Signed by Daiana Cox MD on 03/16/2023 Current Treatment and Therapy Plans IV Maintenance Therapy Plan* Plan Start Date:05/05/2023 Plan Provider:Daiana Cox MD Linked Problems Endometrial cancer Treatment Medications No medications scheduled. Venous Sampling from IVAD* Plan Start Date:06/23/2023 Plan Provider:Daiana Cox MD Linked Problems Endometrial cancer Treatment Medications No medications scheduled. Past Treatment and Therapy Plans Oncology Chemotherapy Treatment Plan Name Start Date Discontinue Date Treatment Medications Discontinue Reason Plan Provider Cycles PACLItaxel / CARBOplatin (AUC 4) 21 Day Cycles - BRAND MARKETING MANAGER (Carbo Locked) 04/12/2023 11/23/2023 CARBOplatin (by [...]
--- OUTSIDE RECORDS SUMMARY | 2025-08-17 17:04 | XMS_ITS | Clinical Summary ---
Author Organization [facility] Address [address] [place] [address] Care Team Providers Care Head Concierge Name Role Phone Kunal Ruiz MD Primary Care Provider [phone] Rivera Rizzo MD Unavailable [phone] Maria Esther Velazquez MD Unavailable [phone] Geoff Gan MD Unavailable [phone] Allergies Active Allergy Reactions Criticality Noted Date Comments Acetaminophen Unknown 11/14/2024 Alpha Lipoic Acid Hives Medium 06/21/2024 Azithromycin Unknown 11/14/2024 Hydrocodone Unknown 11/14/2024 Medications escitalopram (LEXAPRO) 10 mg tablet Take 1 tablet (10 mg total) by mouth human insights lead ads marketing before breakfast 3 Active multivit/folic acid/vit K1 (ONE-A-DAY WOMEN'S 50 PLUS ORAL) Take 1 tablet by mouth human insights lead ads marketing before breakfast Active calcium carbonate (CALCIUM 600 ORAL) Take 1 tablet by mouth human insights lead ads marketing before breakfast Active cyanocobalamin (Vitamin B-12) 500 mcg tabletIndicatio ns:Prevention of Vitamin B12 Deficiency Take 1 tablet (500 mcg total) by mouth human insights lead ads marketing before breakfast Active cholecalciferol (VITAMIN D-3) 1,000 unit Take 1 tablet/capsule (1,000 Units total) by mouth human insights lead ads marketing before breakfast Active montelukast (SINGULAIR) 10 mg tablet Take 1 tablet (10 mg total) by mouth nightly 5 Active lysine 500 mg tablet Take 1 tablet (500 mg total) by mouth daily Active ascorbic acid (ascorbic acid with shirley hips) 500 mg tablet,chewable Take 1 tablet/chew tab (500 mg total) by mouth daily Active vitamin E 400 unit capsule Take 1 capsule (400 Units total) by mouth daily Active glucosamine sulfate 1,000 mg capsule Take 1,000 mg by mouth daily Active mecobalamin, vitamin B12, 500 mcg tablet,chewable Take 500 mcg by mouth 5 Active folic acid-vitamin B6-vit B12 1,000 mcg-10 mg -400 mcg tablet Take 1 tablet by mouth 1 Active ondansetron (ZOFRAN) 8 mg tablet Take 1 tablet (8 mg total) by mouth 3 Active multivitamin with iron tablet Take 1 tablet by mouth 1 Active hydrOXYzine (ATARAX) 25 mg tablet Take 1 tablet (25 mg total) by mouth 3 Active Active Problems Problem Noted Date Diagnosed [...] Encounters Date Type Department Care Team Description 05/23/2025 1:00 PM CDT Office Visit [facility] Medicine Obstetrics and Gynecology [address] [facility] [address] [place] [address] [place] [id number] Vanda Escobar NP Encounter for routine cancer follow-up (Primary Dx); Endometrial cancer from Last 3 Months Immunizations Immunization Administration [...] on file 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 Gender Identity Not on file Sexual Orientation Not on file Obstetrics History Para Term AB IAB SAB Ectopic Multiple Livin g Live Births 2 2 2 2 2 Date Outcome GA Total Labor Labor/2nd/3rd Weight Sex Type Anes PTL Isabela A1 A5 Name Clin Term Term Comments x 2 Last Filed Vital Signs Vital Sign Reading Time Taken Comments Blood Pressure 151/83 05/23/2025 12:57 PM CDT Pulse 69 05/23/2025 12:57 PM CDT Temperature 36.8 C (98.3 F) 05/23/2025 12:57 PM CDT Respiratory Rate 16 05/23/2025 12:57 PM CDT Oxygen Saturation 96% 05/23/2025 12:57 PM CDT Inhaled Oxygen Concentration - - Weight 82.3 kg (181 lb 8 oz) 05/23/2025 12:57 PM CDT Height 157.5 cm (5' 2) 05/23/2025 12:57 PM CDT Body Mass Index 33.2 05/23/2025 12:57 PM CDT Plan of Treatment Health Maintenance Due Date Last Done Comments Breast Cancer Screening-Mammogram 1960 Colon Cancer Screening-Colonoscopy 1958 Depression Screening 1958 Hepatitis C Screening 1958 Osteoporosis Screening-Bone Density Scan 1958 Hepatitis B Screening 1976 Pneumococcal vaccine 65+ (1 of 1 - PCV) 2008 Covid-19 Vaccine (3 - Moderna risk series) 01/16/2021 12/19/2020, 11/19/2020 Well Visit 65+ 2023 Fall Risk Assessment 08/18/2024 08/18/2023, 06/02/20 23 DTaP/Tdap/Td Vaccine (2 - Td or Tdap) 11/12/202411/2014 Influenza Vaccine (#1) 2025 Zoster Vaccine Completed 02/17/2022, 11/12/2021 Medical Devices Implanted Type Area Medical Specialist Device Identifier Shelf Expiration Date Model / Serial / Lot [employer] Xcela Power Port 8fr [id number] - [id number] Implanted:Qty: 1 on 04/14/2023 at [facility] [employer] 09/19/2027 [id number] / / [id number] [place] [address] [facility] MEDICARE [facility] Advance Directives For more information, please contact: [phone] * Full Code (Latest Code Status on File) Date Activated Date Inactivated Comments 06/02/2023 7:12 AM 06/03/2023 4:50 AM * Full Code Date Activated Date Inactivated Comments 04/14/2023 7:37 AM 04/15/2023 4:55 AM Care Teams Head Concierge Relationship Specialty Start Date End Date Kunal Ruiz MD PCP - General Internal Medicine 01/13/23 Rivera Rizzo MD [address] [place] [address] Referring Physician Obstetrics and Gynecology 05/04/23 Maria Esther Velazquez MD [address] [place] [address] Radiation Oncologist Radiation Oncology 09/27/23 Geoff Gan MD [phone] [place] [address] Surgeon Colon and Rectal Surgery 04/30/25
--- OUTSIDE RECORDS SUMMARY | 2025-08-17 17:04 | XMS_ITS | Encounter Summary ---
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 Gender Identity Not on file Sexual Orientation Not on file documented as of this encounter Functional Status * Question Answer Date of Assessment Author BP Location Left arm 04/14/2023 2:45 PM CDT Stanislav Clement RN BP Method Automatic 04/14/2023 2:45 PM CDT Stanislav Clement RN MAP (mmHg) 117 04/14/2023 10:07 AM CDT Roberta Proctor * Ochoa Fall Risk Question Answer Date of Assessment Author History of Falling 0 04/14/2023 10:15 AM CD T Stanislav Almendarez RN Secondary Diagnosis 15 04/14/2023 10:15 AM C DT Stanislav Almendarez RN Ambulatory Aids 0 04/14/2023 10:15 AM CDT Stanislav Daniel RN Intravenous Therapy/Heparin/Saline Lock 0 04/14/2023 10:15 AM CDT Stanislav Almendarez RN Gait/Transferring 0 04/14/2023 10:15 AM CDT Stainslav Almendarez RN Mental Status 0 04/14/2023 10:15 AM CDT Stanislav Ashby RN Ochoa Fall Risk Score (Score >= 45 places fall precaution order) 15 04/14/2023 10:15 AM RADHAT Mesha Almendarez RN Prior Fall Event (Autopopulated from EMR) None found 04/14/2023 10:15 AM RADHAT Hui Almendarez RN * Fall Risk Interventions Question Answer Date of Assessment Author All Low Fall Interventions Applied Yes 04/14/2023 10:15 AM Stanislav Byrne RN All Moderate Fall Interventions Applied No 04/14/2023 10:15 AM Stanislav Byrne RN All Moderate Fall Risk Interventions EXCEPT: OT eval requested or obtained;PT eval requested or obtained;Gait belt at bedside 04/14/2023 10:15 AM Stanislav Byrne RN All High Fall Risk Interventions Applied No 04/14/2023 10:15 AM Stanislav Byrne RN All High Risk Interventions EXCEPT: Bed alarm;Chair alarm 04/14/2023 10:15 AM Stanislav Byrne RN Reason For Exception(s) outpatient setting 04/14 10:15 AM Stanislav Byrne RN Reason For Exception(s) outpatient setti ng; A&Ox4 04/14/2023 10:15 AM Stanislav Byrne RN * Alcohol Withdrawal BP Hierarchy Answer Date of Assessment Author 79 04/14/2023 2:45 PM Stanislav Byrne RN * Question Answer Date of Assessment Author Skin Condition/Temp Warm;Dry 04/14/2023 11:30 AM C Stanislav Reich RN * Integumentary Question Answer Date of Assessment Author Skin Color Appropriate for ethnicity 04/14/2023 9:35 AM Lilia Hairston RN Skin Integrity Surgical incision 04/14/2023 9:35 AM Lilia Verduzco RN Skin Turgor Non-tenting 04/14/2023 9:35 AM Lilia Liz RN Integumentary (WDL) X 04/14/2023 9:35 AM Lilia Verduzco RN Skin Location R upper Chest 04/14/2023 9:35 AM RADHAT Lilia Li RN * Question Answer Date of Assessment Author BP Location Left arm 04/14/2023 2:45 PM Stanislav Burton RN BP Method Automatic 04/14/2023 2:45 PM Stanislav Burton RN * Fall Risk Interventions Question Answer Date of Assessment Author All Low Fall Interventions Applied Yes 04/14/2023 10:15 AM Stanislav Byrne RN All Moderate Fall Interventions Applied No 04/14/2023 10:15 AM Stanislav Byrne RN All Moderate Fall Risk Interventions EXCEPT: OT eval requested or obtained;PT eval requested or obtained;Gait belt at bedside 04/14/2023 10:15 AM Stanislav Byrne RN All High Fall Risk Interventions Applied No 04/14/2023 10:15 AM Stanislav Byrne RN All High Risk Interventions EXCEPT: Bed alarm;Chair alarm 04/14/2023 10:15 AM Stanislav Byrne RN Reason For Exception(s) outpatient setting 04/14 10:15 AM Stanislav Byrne, ROCHELLE Reason For Exception(s) outpatient setti ng; A&Ox4 04/14/2023 10:15 AM RADHAT Stanislav Almendarez RN documented as of this encounter Mental Status * Question Answer Entry Date Author Neuro (WDL) WDL 04/14/2023 9:35 AM CDT Lilia Guardado RN documented in this encounter Plan of Treatment Not on file documented as of this encounter Visit Diagnoses Not on filedocumented in this encounter Care Teams Group Segment Consultant Relationship Specialty Start Date End Date Kunal Ruiz MD PCP - General Internal Medicine 01/13/23 Rivera Rizzo MD [address] [facility] [address] [place], [place] [id number] Referring Physician Obstetrics and Gynecology 05/04/23 Maria Esther Velazquez MD [address] [facility] [facility] [address] [place], [place] [id number] Radiation Oncologist Radiation Oncology 09/27/23 Geoff Gan MD [phone] [place], [place] [id number] Surgeon Colon and Rectal Surgery 04/30/25 documented as of this encounter
--- OUTSIDE RECORDS SUMMARY | 2025-08-17 17:04 | XMS_ITS | Encounter Summary ---
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 [employer] Gender Identity Not on file Sexual Orientation Not on file documented as of this encounter Functional Status * Question Answer Date of Assessment Author MAP (mmHg) 104 06/02/2023 9:00 AM CDT Eduin Parks RN * Question Answer Date of Assessment Author BP Location Right arm 06/02/2023 9:10 AM RADHAT Bere Zamarripa RN BP Method Automatic 06/02/2023 9:10 AM CDT Bere Zamarripa RN * Ochoa Fall Risk Question Answer Date of Assessment Author History of Falling 0 06/02/2023 7:15 AM Yasmin Holland RN Secondary Diagnosis 15 06/02/2023 7:15 AM Yasmin Constantino RN Ambulatory Aids 0 06/02/2023 7:15 AM CDT Yasmin Wade RN Intravenous Therapy/Heparin/Saline Lock 0 06/02/2023 7:15 AM Yasmin Holland RN Gait/Transferring 0 06/02/2023 7:15 AM Yasmin Holland RN Mental Status 0 06/02/2023 7:15 AM CDT Yasmin Chandra RN Ochoa Fall Risk Score (Score >= 45 places fall precaution order) 15 06/02/2023 7:15 AM Yasmin Holland RN Prior Fall Event (Autopopulated from EMR) None found 06/02/2023 7:15 AM Crissy Holland RN * Alcohol Withdrawal BP Hierarchy Answer Date of Assessment Author 84 06/03/2023 9:05 AM RADHAT Moreno Lala RN * Question Answer Date of Assessment Author Skin Condition/Temp Warm;Dry 06/03/2023 9:21 AM Chon Reaves RN * Integumentary Question Answer Date of Assessment Author Integumentary (WDL) WDL 06/02/2023 9:05 AM Bere Lee, ROCHELLE documented as of this encounter Mental Status * Question Answer Entry Date Author Neuro (WD) WD 06/02/2023 9:05 AM Bere Danielson RN documented in this encounter Plan of Treatment Not on file documented as of this encounter Visit Diagnoses Not on filedocumented in this encounter Care Teams Fireman Relationship Specialty Start Date End Date Kunal Ruiz MD PCP - General Internal Medicine 01/13/23 Rivera Rizzo MD [address] [facility] [address] [address] [address] [facility] [address] [place], [place] [id number] Referring Physician Obstetrics and Gynecology 05/04/23 Maria Esther Velazquez MD [address] [place], [place] [id number] Radiation Oncologist Radiation Oncology 09/27/23 Geoff Gan MD [address] [facility] [place] [id number] [place] [address] Surgeon Colon and Rectal Surgery 04/30/25 documented as of this encounter
--- OUTSIDE RECORDS SUMMARY | 2025-08-17 17:04 | XMS_ITS | Clinical Summary ---
Author Organization [facility] lin Address [address] [facility] [place] [address] Care Team Providers Care Addresser Name Role Phone Kunal Ruiz MD Primary Care Provider [phone] Social History Tobacco Use Types Packs/Day Years Used Date Smoking Tobacco: Never Assessed Comments Unknown Sex and Gender Information Value Date Recorded Sex Assigned at Not on file Legal Sex Female 2:08 PM EDT Gender Identity Not on file Sexual Orientation Not on file Plan of Treatment Not on file Medical Devices Not on file Insurance [facility] Care Teams Addresser Relationship Specialty Start Date End Date Kunal Ruiz MD [address] [place] [address] PCP - General Internal Medicine 07/02/20
--- NOTE | 2025-08-17 17:27 | ED.BACK ---
HPI - Back Pain/Injury General Chief Complaint: Back Pain/Injury Stated Complaint: back pain Time Seen by Provider: 08/17/25 16:35 Source: patient and family Mode of arrival: ambulatory Limitations: no limitations History of Present Illness HPI Narrative: This is a 65-year-old female with a history of low back pain with radiculopathy to her right lower extremity numbness and tingling with no saddle paresthesias no fever chills has been seeing her primary care doctor and receiving pain medication and injections with minimal relief. Otherwise no injury no nausea vomiting no diarrhea constipation no dysuria no flank pain. MD elicited complaint: back pain Pertinent past history: prior back pain Onset (ago): week(s) Timing: constant Severity: moderate Pain scale (0-10): 7 Similar Symptoms Previously: Yes Quality: dull and tingling Exacerbating factors: movement Relieving factors: immobilization Related Data Home Medications ?Medication ?Instructions ?Recorded ?Confirmed ?Last Taken ?Type calcium carbonate (Calcium 600) 600 mg PO DAILY 04/08/21 11/22/24 11/20/24 History cholecalciferol (vitamin D3) 25 25 mcg PO DAILY 04/08/21 11/22/24 11/20/24 History mcg (1,000 unit) capsule escitalopram oxalate 5 mg tablet 5 mg PO DAILY 04/08/21 11/22/24 11/20/24 History multivitamin (Daily Multi-Vitamin 1 tablet PO DAILY 04/08/21 11/22/24 11/20/24 History tablet) vitamin B complex (B 1 tablet PO DAILY 04/08/21 11/22/24 11/20/24 History Complex-Vitamin B12 tablet) ondansetron HCl 8 mg tablet 8 mg PO Q4H PRN Nausea And Vomiting 05/18/23 11/14/24 Unknown History mecobalamin (vitamin B12) 500 mcg 500 mcg PO DAILY 11/14/24 11/22/24 11/20/24 History chewable tablet Allergies Allergy/AdvReac Type Severity Reaction Status Date / Time acetaminophen (From Vicodin) Allergy unknown Verified 11/14/24 11:30 azithromycin Allergy unknown Verified 11/14/24 11:30 hydrocodone (From Vicodin) Allergy unknown Verified 11/14/24 11:30 tramadol Allergy unknown Verified 11/14/24 11:30 Review of Systems Review of Systems: All systems reviewed & are unremarkable except as noted in HPI and below PMFSH Past Medical History Medical History Vaginal delivery x 2 DVT (deep venous thrombosis) Surgical History Surgical History History of appendectomy History of bilateral tubal ligation Family History Family History Sibling Cerebrovascular accident Daughter Diabetes mellitus Thyroid disorder Social History Social History Smoking status: Never smoker Alcohol intake: never Substance use: never Substance use type: does not use Lack of Transportation: No Lack of Food: Never True Current Housing: I Have Housing Concerned About Future Housing: No Difficulty Paying Gas/Electric Bills: No Difficulty Paying for Meds: No Currently Unemployed: No Education: High School Diploma/GED Difficulty w/ Childcare or Family Care: No Living arrangements: with family Gender identity (if verbalized by the patient): Female Sexual Orientation (if Verbalized by the Patient): Straight or Heterosexual Spiritual care concerns: No Agree to blood products: Yes Exam Const: General: healthy appearing and no acute distress Nutritional Appearance: well nourished Orientation/consciousness: patient oriented x3 Limitations: no limitations Chest: Chest palpation & inspection: normal inspection of the chest Resp: Effort & Inspection: normal respiratory effort Auscultation: clear to auscultation bilaterally Cardio: Rate: regular rate Rhythm: regular rhythm GI: GI Palp: Yes Soft to palpation Auscultation: normal bowel sounds : General: Yes bladder normal to palpation Back/Spine/Pelvis: Back: no CVA tenderness Skin: General skin exam: normal color Rashes: no rashes Wounds: no wounds Neuro: General: patient oriented x3, moves all extremities, no meningeal signs and no focal motor deficits Extrem: Other: Right lumbar paravertebral tenderness with positive straight leg raising test on the right Course Course Emergency Course: Medical decision making narrative: The patient was evaluated by myself in the emergency department. History obtained from the patient was an independent historian physical exam performed and witnessed by nurse. CT scan performed shows severe spinal stenosis and old healing fracture of the sacral alar. Patient received 30mg IM Toradol with minimal relief And 2mg IM morphine administered. Repeat assessment Patient doing well on repeat exam with no acute distress Blood pressure is elevated and dose of 5mg p.o. Norvasc was administered. Patient agrees with discussion and after shared medical decision-making and agrees with discharge All questions answered the patient satisfaction Advised follow-up with primary in the next 3 to 5 days. Vital Signs Vital signs: Vital Signs Temperature 36.9 C 08/17/25 16:31 Pulse Rate 57 L 08/17/25 16:31 Respiratory Rate 18 08/17/25 16:31 Blood Pressure 193/106 H 08/17/25 16:31 Pulse Oximetry 95 08/17/25 16:31 Oxygen Delivery Room Air 08/17/25 16:31 Temperature 36.9 C 08/17/25 16:31 Pulse Rate 57 L 08/17/25 16:31 Respiratory Rate 18 08/17/25 16:31 Blood Pressure 193/106 H 08/17/25 16:31 Pulse Oximetry 95 08/17/25 16:31 Oxygen Delivery Room Air 08/17/25 16:31 MDM Differential Diagnosis Differential Diagnosis: Sciatic/spinal stenosis Imaging Data Radiologist's impression: ITS Impressions Lumbar Spine CT 08/17/25 17:16 Impression: 1. Remote fractures detailed above. No acute fractures identified. Moderate to severe degenerative changes, MRI suggested to further evaluate. Critical Care Time Critical Care Time Critical Care Time: No Discharge Plan Discharge Clinical Impression: Lumbar radiculopathy Sciatica Qualifiers: Laterality: right Qualified Code(s): M54.31 - Sciatica, right side Patient Disposition: Home Condition: Stable Instructions: Antibiotic Form, Sciatica (ED) Additional Instructions: Advised patient to take medication as prescribed and to follow with primary care physician in the next 3 to 5 days for further evaluation and treatment. Patient Language: Danish Prescriptions: New naproxen 500 mg tablet 500 mg PO BID Qty: 14 0RF Rx Instructions: Take with meal cyclobenzaprine 5 mg tablet 5 mg PO TID Qty: 20 0RF No Action ondansetron HCl 8 mg tablet 8 mg PO Q4H PRN (Reason: Nausea And Vomiting) hydroxyzine HCl 25 mg tablet 25 mg PO TID PRN (Reason: itching) Qty: 20 0RF multivitamin [Daily Multi-Vitamin] Tablet 1 tablet PO DAILY calcium carbonate [Calcium 600] 600 mg calcium (1,500 mg) tablet 600 mg PO DAILY vitamin B complex [B Complex-Vitamin B12] Tablet 1 tablet PO DAILY cholecalciferol (vitamin D3) 25 mcg (1,000 unit) capsule 25 mcg PO DAILY escitalopram oxalate 5 mg tablet 5 mg PO DAILY mecobalamin (vitamin B12) 500 mcg tablet,chewable 500 mcg PO DAILY Follow-up/Referrals: Kunal Ruiz MD [Primary Care Provider, Internal Medicine] Time of Disposition: 17:34
[2025-08-17 17:30] VITALS: BP 194/96
[2025-08-17] MEDS: MORPHINE SULFATE (*CRX) 2 MG/ML INJ IM (17:35)
[2025-08-17 18:00] VITALS: BP 176/109; PULSE 62; RESP 20; O2SAT 97
[2025-08-17 18:35] VITALS: BP 187/95; PULSE 65; RESP 20; TEMP 36.7; O2SAT 98
[2025-08-17 18:40] VITALS: BP 176/109; PULSE 64
== END 2025-08-17 18:40 | disposition home or self-care (01) ==
PROVIDERS: Emergency Provider Emergency Medicine; PCP Internal Medicine
DX: M54.16 Radiculopathy, lumbar region (principal); M54.31 Sciatica, right side
CPT/HCPCS: 72131; 96372; 99284; A9270; J1885; J2270